=== PATIENT | male | born 1990 | race Caucasian/White ===

== ENCOUNTER 2016-07-21 16:49 | Emergency (ER) | payer OTHER ==
[2016-07-21 17:01] VITALS: RESP 18
[2016-07-21] MEDS ORDERED: LORazepam 2 MG/ML SYRINGE IM STA (17:02)
[2016-07-21 17:16] VITALS: BP 135/60
--- NOTE | 2016-07-21 17:32 | ED ---
General Adult HPI - General Chief complaint: Chest Pain Stated complaint: Chest Pain Time Seen by Provider: 07/21/16 16:53 Source: EMS, RN notes reviewed Mode of arrival: EMS Limitations: no limitations - History of Present Illness Initial comments: 25-year-old male presents to the emergency department chief complaint of chest pain and anxiety. Patient states he is very stressed today now coming court date. Patient states he went outside out of 10 and he felt numb and tingly throughout his whole body his mouth became numb he developed chest pain and he almost felt like he couldn't move. Patient states he now is feeling better. Patient denies any fever chills patient states that he just had this whole body type sensation that has since resolved. Patient states it is not currently having any other symptoms at this time.Patient denies any recent fever, chills, shortness of breath, back pain, abdominal pain, nausea vomiting, numbness or tingling, dysuria or hematuria, constipation or diarrhea, headaches or visual changes, or any other current symptoms. - Related Data Home Medications Medication Instructions Recorded Confirmed No Known Home Medications [No 07/21/16 07/21/16 Known Home Medications] Allergies Allergy/AdvReac Type Severity Reaction Status Date / Time divalproex sodium Allergy Unknown Verified 07/21/16 17:02 [From Depakote] methylphenidate Allergy Unknown Verified 07/21/16 17:02 [From Daytrana] risperidone [From Risperdal] Allergy Unknown Verified 07/21/16 17:02 trazodone Allergy Unknown Verified 07/21/16 17:02 Review of Systems ROS Statement: Those systems with pertinent positive or pertinent negative responses have been documented in the HPI. ROS Other: All systems not noted in ROS Statement are negative. Past Medical History Past Medical History: Diabetes Mellitus, Syncope Additional Past Medical History / Comment(s): Anemia History of Any Multi-Drug Resistant Organisms: None Reported Past Surgical History: Orthopedic Surgery Additional Past Surgical History / Comment(s): wrist surgery Past Psychological History: ADD/ADHD, Anxiety, Bipolar, Schizophrenia Smoking Status: Current every day smoker Past Alcohol Use History: None Reported Past Drug Use History: Marijuana General Exam Limitations: no limitations General appearance: alert, anxious ENT exam: Present: normal exam Neck exam: Present: normal inspection. Absent: tenderness, meningismus, lymphadenopathy Respiratory exam: Present: normal lung sounds bilaterally. Absent: respiratory distress, wheezes, rales, rhonchi, stridor Cardiovascular Exam: Present: regular rate, normal rhythm, normal heart sounds. Absent: systolic murmur, diastolic murmur, rubs, gallop, clicks Neurological exam: Present: alert, oriented X3, CN II-XII intact. Absent: motor sensory deficit Psychiatric exam: Present: normal affect, normal mood Skin exam: Present: warm, dry, intact, normal color. Absent: rash Course Vital Signs 07/21/16 07/21/16 16:59 17:15 Temperature 97.8 F Pulse Rate 75 58 L Respiratory 18 18 Rate Blood Pressure 206/141 135/60 O2 Sat by Pulse 100 100 Oximetry EKG Findings - EKG Comments: EKG Findings:: Sinus bradycardia with sinus arrhythmia 54 bpm, normal axis, no atopy, no S-T depressions or elevations, Medical Decision Making - Medical Decision Making 25-year-old male presents emergency Department chief complaint of what appears to be an anxiety attack. Patient is feeling better with the Ativan. Patient's EKG and chest x-ray reviewed and negative. This time we discussed continued follow up outpatient. We discussed return parameters. We did discuss all the patient's questions. He stated he understood. Patient is discharged home. Disposition Clinical Impression: Anxiety Disposition: HOME SELF-CARE Condition: Stable Instructions: Anxiety (ED) Additional Instructions: Please use medication as discussed. Please follow up with family doctor if symptoms have not improved over the next two days. Please return to the emergency room if your symptoms increase or worsen or for any other concerns. Referrals: Pam Marvin MD [Primary Care Provider] - 1-2 days Time of Disposition: 17:45
--- NOTE | 2016-07-21 17:42 | XR ---
EXAMINATION TYPE: XR chest 2V DATE OF EXAM: 07/21/2016 5:25 PM COMPARISON: 10/10/2011 HISTORY: 25-year-old male with chest pain and cough TECHNIQUE: PA and lateral views FINDINGS: The cardiomediastinal silhouette, aorta, and pulmonary vasculature are within normal limits. There is diffuse interstitial prominence without consolidation or pleural effusion. IMPRESSION: Diffuse interstitial prominence could reflect bronchitis, chronic asthma, or atypical pneumonias.
[2016-07-21 17:55] VITALS: PULSE 66; TEMP 97.4
== END 2016-07-21 17:55 | disposition home or self-care (01) ==
LOC: EC 16:49
DX: F41.9 Anxiety disorder, unspecified (principal); F17.200 Nicotine dependence, unspecified, uncomplicated; Z88.8 Allergy status to other drugs, medicaments and biological substances
CPT/HCPCS: 93005; 71020; 96372; 99285; J2060

== ENCOUNTER 2018-12-19 18:55 | Emergency (ER) | payer OTHER ==
[2018-12-19 19:05] VITALS: RESP 16
[2018-12-19] MEDS ORDERED: CEPHALEXIN 500MG STARTER PACK 4 CAP BTL PO STA (19:56)
--- NOTE | 2018-12-19 20:07 | ED ---
Recheck HPI - General Chief Complaint: Recheck/Abnormal Lab/Rx Stated Complaint: Right Arm Laceration Time Seen by Provider: 12/19/18 19:32 Source: patient Mode of arrival: ambulatory Limitations: no limitations - History of Present Illness Initial Comments: 28-year-old male patient presents to the emergency department today for reevaluation of a laceration to the right wrist. Patient states he injured the right wrist 2 weeks ago. Patient states he did have sutures placed and did have that removed 1 week ago. Patient states that the wound keeps reopening. States that yesterday he did start to drain out of purulent type fluid. Patient states that the area does have pain intermittently. Denies any numbness, tingling, or swelling to the hand or arm. Denies any fever or chills with this. Patient states he was given a prescription of antibiotics at the time of injury however he did not take this medication. States he does have Tylenol Motrin for pain control at home. Patient denies any recent rash, shortness breath, chest pain, abdominal pain, nausea, vomiting, diarrhea, constipation, back pain, numbness, tingling, dizziness, weakness, hematuria, dysuria, urinary urgency, urinary frequency, headache, visual changes, or any other complaints. - Related Data Previous Rx's Medication Instructions Recorded Cephalexin [Keflex] 500 mg PO Q6HR #40 cap 12/19/18 Allergies Allergy/AdvReac Type Severity Reaction Status Date / Time acetaminophen Allergy Rash/Hives Verified 12/19/18 19:00 codeine Allergy Rash/Hives Verified 12/19/18 19:00 divalproex sodium Allergy Unknown Verified 12/19/18 19:00 [From Depakote] methylphenidate Allergy Unknown Verified 12/19/18 19:00 [From Daytrana] risperidone [From Risperdal] Allergy Unknown Verified 12/19/18 19:00 trazodone Allergy Unknown Verified 12/19/18 19:00 Review of Systems ROS Statement: Those systems with pertinent positive or pertinent negative responses have been documented in the HPI. ROS Other: All systems not noted in ROS Statement are negative. Past Medical History Past Medical History: Syncope Additional Past Medical History / Comment(s): Anemia History of Any Multi-Drug Resistant Organisms: None Reported Past Surgical History: Orthopedic Surgery Additional Past Surgical History / Comment(s): wrist surgery Past Psychological History: ADD/ADHD, Anxiety, Bipolar, Schizophrenia Smoking Status: Current every day smoker Past Alcohol Use History: Rare Past Drug Use History: Marijuana General Exam Limitations: no limitations General appearance: alert, in no apparent distress, other (Physical well- developed, well-nourished adult male patient in no acute distress. Vital signs upon presentation are temperature 99.3F, pulse 88, respirations 16, blood pressure 153/89, pulse ox 99% on room air.) Respiratory exam: Present: normal lung sounds bilaterally. Absent: respiratory distress, wheezes, rales, rhonchi, stridor Cardiovascular Exam: Present: regular rate, normal rhythm, normal heart sounds. Absent: systolic murmur, diastolic murmur, rubs, gallop, clicks Extremities exam: Present: full ROM, normal capillary refill, other (Patient has healing laceration to the right wrist. There is one area that is deep but scabbed. There is mild surrounding erythema. Radial pulses 2+ and equal bilaterally. Remainder of skin is pink, warm, and dry.). Absent: normal inspection, tenderness, pedal edema, joint swelling, calf tenderness Neurological exam: Present: alert, oriented X3, CN II-XII intact Psychiatric exam: Present: normal affect, normal mood Skin exam: Present: warm, dry, intact, normal color. Absent: rash Course Vital Signs 12/19/18 12/19/18 19:00 20:34 Temperature 99.3 F 98.7 F Pulse Rate 88 73 Respiratory 16 16 Rate Blood Pressure 153/89 117/59 O2 Sat by Pulse 99 98 Oximetry Medical Decision Making - Medical Decision Making 28-year-old male patient presents to the emergency department today for evaluation of laceration to the right wrist. 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 Physical examination did reveal a deep healing laceration to the right volar wrist. There is mild surrounding erythema. No current drainage. Patient will be started on Keflex, he is urged to complete this prescription and full. Instructed take Tylenol Motrin for pain control. We did discuss him wearing a brace while at work to prevent straining of the lac site, he refuses. He is instructed follow with the primary care physician for recheck in 1-2 days. Return parameters discussed in detail. He verbalizes unders tanding and agrees this plan. Disposition Clinical Impression: Infected laceration Disposition: HOME SELF-CARE Condition: Good Instructions (If sedation given, give patient instructions): Wound Infection (ED), Acute Wound Care (ED) Additional Instructions: Keep area clean and dry. Minimize movement of the wrist until laceration is completely healed. Complete antibiotic prescription in full. Return to the emergency department for any new, worsening, or concerning symptoms. Prescriptions: Cephalexin [Keflex] 500 mg PO Q6HR #40 cap Is patient prescribed a controlled substance at d/c from ED?: No Referrals: None,Stated [Primary Care Provider] - 1-2 days Time of Disposition: 20:07
[2018-12-19 20:36] VITALS: BP 117/59; PULSE 73; TEMP 98.7
== END 2018-12-19 20:34 | disposition home or self-care (01) ==
LOC: EC 18:55
DX: S61.511A Laceration without foreign body of right wrist, initial encounter (principal); L08.9 Local infection of the skin and subcutaneous tissue, unspecified; F17.200 Nicotine dependence, unspecified, uncomplicated; Z88.5 Allergy status to narcotic agent; Z88.6 Allergy status to analgesic agent; Z88.8 Allergy status to other drugs, medicaments and biological substances; W26.9XXA Contact with unspecified sharp object(s), initial encounter
CPT/HCPCS: 99282

== ENCOUNTER 2020-04-30 16:37 | Emergency (ER) | payer OTHER ==
[2020-04-30] MEDS ORDERED: MORPHINE SULFATE 4 MG/ML SYRINGE IV STA (16:53)
[2020-04-30] MEDS ORDERED: METOCLOPRAMIDE 5 MG/ML 2 ML VIAL IVP STA (16:53)
[2020-04-30] MEDS ORDERED: SODIUM CHLORIDE 0.9% 1,000 ML IV ONE (16:53)
[2020-04-30 17:08] LABS: Basophils # (A) 0.1 k/uL (0-0.2); Basophils % (A) 1 %; Eosinophils # (A) 0.3 k/uL (0-0.7); Eosinophils % (A) 3 %; HCT 46.7 % (39.0-53.0); HGB 15.3 gm/dL (13.0-17.5); Lymphocytes # (A) 3.2 k/uL (1.0-4.8); Lymphocytes % (A) 38 %; MCH 28.6 pg (25.0-35.0); MCHC 32.8 g/dL (31.0-37.0); MCV 87.4 fL (80.0-100.0); Mean Platelet Volume 8.6; Monocytes # (A) 0.5 k/uL (0-1.0); Monocytes % (A) 6 %; Neutrophils # (A) 4.3 k/uL (1.3-7.7); Neutrophils % (A) 50 %; Platelet Count 219 k/uL (150-450); RBC 5.35 m/uL (4.30-5.90); RDW 14.7 % (11.5-15.5); WBC 8.5 k/uL (3.8-10.6)
[2020-04-30 17:23] LABS: ALT 21 U/L (4-49); AST 26 U/L (17-59); African American GFR (CKD) >90 (>60 ml/min/1.73 sqM); Albumin 4.9 g/dL (3.5-5.0); Alkaline Phosphatase 67 U/L (38-126); Anion Gap 9 mmol/L; Blood Urea Nitrogen 11 mg/dL (9-20); Calcium 9.9 mg/dL (8.4-10.2); Carbon Dioxide 20 mmol/L (22-30); Chloride 111 mmol/L (98-107); Glucose 122 mg/dL (74-99); Non-African American GFR(CKD) >90 (>60 ml/min/1.73 sqM); Sodium 140 mmol/L (137-145); Total Bilirubin 0.9 mg/dL (0.2-1.3); Total Protein 8.2 g/dL (6.3-8.2)
[2020-04-30 17:28] LABS: Potassium 4.5 mmol/L (3.5-5.1)
[2020-04-30 17:37] LABS: Partial Thromboplastin Time 27.9 sec (22.0-30.0); Prothrombin Time 10.6 sec (9.0-12.0)
--- NOTE | 2020-04-30 17:42 | CT ---
EXAMINATION TYPE: CT brain cspine wo con DATE OF EXAM: 04/30/2020 COMPARISON: 04/28/2020 HISTORY: Pt fall, c/o excruciating pain LT side of head. CT DLP: 1791.6 mGycm Automated exposure control for dose reduction was used. Ventricles have normal size. There is no mass effect nor midline shift. There is no sign of intracran ial hemorrhage. The calvarium is intact. There is no evidence of cerebral edema. There is some straightening of the cervical spine. Disc spaces are normal. Posterior elements are int act. Facet joints appear normal. Prevertebral soft tissues appear normal. IMPRESSION: Normal unenhanced head CT scan. No change. There is some straightening of the cervical spine and slight kyphotic curvature that could relate to spasm and is a change compared to recent exam. No cervical spine fracture. I do not see obvious cervi indira disc herniation.
--- NOTE | 2020-04-30 18:13 | CT ---
EXAMINATION TYPE: CT angio head neck DATE OF EXAM: 04/30/2020 COMPARISON: None HISTORY: Pt fall, c/o excruciating pain LT side of head CT DLP: 826.2 mGycm Automated exposure control for dose reduction was used. CONTRAST: Performed with IV Contrast, patient injected with 65 mL of Isovue 370. Images obtained from the aortic arch to the vertex of the brain with IV contrast and 3-D post process ed images. There is normal branching pattern of the great vessels on the aortic arch. There is bilateral arteria l flow in the subclavian arteries. There is arterial flow in the common internal and external carotid arteries bilaterally. Carotid artery bifurcations appear widely patent. There is arterial flow in michael th vertebral arteries. Left vertebral artery is larger than the right. Basilar artery fills mostly fr om the left side. Right vertebral artery is relatively small. There is arterial flow in the anterior middle and posterior cerebral arteries. There is no evidence o f intracranial aneurysm or neovascularity. There is no mass effect. There is no evidence of hemodynam ic stenosis. There is normal contrast opacification of the venous sinuses. There is 1 cm mucous reten tion cyst in the left maxillary sinus. IMPRESSION: Negative CT angiogram of the neck. Negative CT angiogram of the brain.
--- NOTE | 2020-04-30 18:51 | ED ---
General Adult HPI - General Source: patient, RN notes reviewed, old records reviewed Mode of arrival: ambulatory Limitations: no limitations <León Monson - Last Filed: 04/30/20 19:14> <Tammie Peña - Last Filed: 05/02/20 08:30> - General Chief complaint: Headache Stated complaint: head pain Time Seen by Provider: 04/30/20 16:46 - History of Present Illness Initial comments: 29-year-old male patient to ED for headache. Patient reports that about 3 PM yesterday he developed a left parietal headache. He reports that he was very sharp. He reports that onset was approximately 30 minutes. Patient was that he went to sleep with headache. He reports that he woke up today with no headache, 15 minutes later the headache again returned. He denies any chest pain shortness of breath. No nuchal rigidity or headache. Denies any other complaints. Systemic: Pt denies fatigue, fever/chills, rash. Pt denies weakness, night sweats, weight loss. Neuro: Pt denies visual disturbances, syncope or pre-syncope. HEENT: Pt denies ocular discharge or irritation, otalgia, rhinorrhea, pharyngitis or notable lymphadenopathy. Cardiopulmonary: Pt denies chest pain, SOB, heart palpitations, dyspnea on exertion. Abdominal/GI: Pt denies abdominal pain, n/v/d. : Pt denies dysuria, burning w/ urination, frequency/urgency. Denies new onset urinary or bowel incontinence. MSK: Pt denies myalgia, loss of strength or function in extremities. Neuro: Pt denies new onset weakness, paresthesias. (León Monson) - Related Data Previous Rx's Medication Instructions Recorded Cephalexin [Keflex] 500 mg PO Q6HR #40 cap 12/19/18 Amoxic-Pot Clav 875-125Mg 1 tab PO Q12HR 10 Days #20 tab 05/01/20 [Augmentin 875-125] Allergies Allergy/AdvReac Type Severity Reaction Status Date / Time acetaminophen Allergy Rash/Hives Verified 05/01/20 17:18 codeine Allergy Rash/Hives Verified 05/01/20 17:18 divalproex sodium Allergy Unknown Verified 05/01/20 17:18 [From Depakote] methylphenidate Allergy Unknown Verified 05/01/20 17:18 [From Daytrana] risperidone [From Risperdal] Allergy Unknown Verified 05/01/20 17:18 trazodone Allergy Unknown Verified 05/01/20 17:18 Review of Systems ROS Other: All systems not noted in ROS Statement are negative. <León Monson - Last Filed: 04/30/20 19:14> ROS Other: All systems not noted in ROS Statement are negative. <Tammie Peña Rosalinda - Last Filed: 05/02/20 08:30> ROS Statement: Those systems with pertinent positive or pertinent negative responses have been documented in the HPI. Past Medical History Past Medical History: Syncope Additional Past Medical History / Comment(s): Anemia History of Any Multi-Drug Resistant Organisms: None Reported Past Surgical History: Orthopedic Surgery Additional Past Surgical History / Comment(s): wrist surgery Past Psychological History: ADD/ADHD, Anxiety, Bipolar, Schizophrenia Smoking Status: Current every day smoker Past Alcohol Use History: Rare Past Drug Use History: Marijuana <León Monson - Last Filed: 04/30/20 19:14> General Exam Limitations: no limitations <León Monson - Last Filed: 04/30/20 19:14> - General Exam Comments Initial Comments: Constitutional: NAD, AOX3, Pt has pleasant affect. HEENT: NC/AT, trachea midline, neck supple, no lymphadenopathy. External ears appear normal, without discharge. Mucous membranes moist. Eyes PERRLA, EOM intact. There is no scleral icterus. No pallor noted. Cardiopulmonary: RRR, no murmurs, rubs or gallops, no JVD noted. Lungs CTAB in anterior and posterior berg. No peripheral edema. Abdominal exam: Abdomen soft and non-distended. Abdomen non-tender to palpation in all 4 quadrants. Bowel sounds active in LLQ. No hepatosplenomegaly. No ecchymosis Neuro: CN II-XII intact. No nuchal rigidity. No raccon eyes, no ritter sign, no hemotympanum. No cervical spinal tenderness. MSK: No posterior calf tenderness bilaterally, homans sign negative bilaterally. Posterior tibialis and radial pulse +2 bilaterally. Sensation intact in upper and lower extremities. Full active ROM in upper and lower extremities, 5/5 stregnth. (León Monson) Course Vital Signs 04/30/20 04/30/20 04/30/20 16:39 18:28 19:28 Temperature 97.4 F L 97.6 F Pulse Rate 74 51 L 55 L Respiratory 18 18 16 Rate Blood Pressure 156/82 106/89 125/89 O2 Sat by Pulse 100 98 97 Oximetry Medical Decision Making - Lab Data Result diagrams: 04/30/20 16:59 04/30/20 16:59 - EKG Data -: EKG Interpreted by Me (and Dr. Peña ) <León Monson - Last Filed: 04/30/20 19:14> - Lab Data Result diagrams: 04/30/20 16:59 04/30/20 16:59 <Tammie Peña - Last Filed: 05/02/20 08:30> - Medical Decision Making 29-year-old male patient to ED for headache. Patient reports that about 3 PM yesterday he developed a left parietal headache. He reports that he was very sharp. He reports that onset was approximately 30 minutes. Patient was that he went to sleep with headache. He reports that he woke up today with no headache, 15 minutes later the headache again returned. He denies any chest pain shortness of breath. No nuchal rigidity or headache. Denies any other complaints. Patient vital signs are stable, afebrile. Laboratory investigations are obtained and are nonimpressive. CT brain c spine is obtained and are negative for acute pathology. CTA was negative. EKG is nonischemic. Patient headache has resolved. LP was reccomended and declined. Patient will be discharged with outpatient follow up and return precautions. Case discussed in depth with Dr. Peña. (León Monson) I was available for consultation in the emergency department. The history and physical exam were done by the midlevel provider. I was consulted for this patients care. I reviewed the case with the midlevel provider and based on their presentation of the patient, I agree with the assessment, medical decision making and plan of care as documented. Chart was dictated using [employer] dictation software. Attempts were made to correct any dictation errors however some typographical errors may persist. Patient seen and treated during Covid-19 pandemic. (Tammie Peña) - Lab Data Lab Results 11/15/20 11/15/20 11/15/20 Range/Units 16:59 16:59 16:59 WBC 8.5 (3.8-10.6) k/uL RBC 5.35 (4.30-5.90) m/uL Hgb 15.3 (13.0-17.5) gm/dL Hct 46.7 (39.0-53.0) % MCV 87.4 (80.0-100.0) fL MCH 28.6 (25.0-35.0) pg MCHC 32.8 (31.0-37.0) g/dL RDW 14.7 (11.5-15.5) % Plt Count 219 (150-450) k/uL MPV 8.6 Neutrophils % 50 % Lymphocytes % 38 % Monocytes % 6 % Eosinophils % 3 % Basophils % 1 % Neutrophils # 4.3 (1.3-7.7) k/uL Lymphocytes # 3.2 (1.0-4.8) k/uL Monocytes # 0.5 (0-1.0) k/uL Eosinophils # 0.3 (0-0.7) k/uL Basophils # 0.1 (0-0.2) k/uL PT 10.6 (9.0-12.0) sec INR 1.0 (<1.2) APTT 27.9 (22.0-30.0) sec Sodium 140 (137-145) mmol/L Potassium 4.5 (3.5-5.1) mmol/L Chloride 111 H (98-107) mmol/L Carbon Dioxide 20 L (22-30) mmol/L Anion Gap 9 mmol/L BUN 11 (9-20) mg/dL Creatinine 0.90 (0.66-1.25) mg/dL Est GFR (CKD-EPI)AfAm >90 (>60 ml/min/1.73 sqM) Est GFR (CKD-EPI)NonAf >90 (>60 ml/min/1.73 sqM) Glucose 122 H (74-99) mg/dL Calcium 9.9 (8.4-10.2) mg/dL Total Bilirubin 0.9 (0.2-1.3) mg/dL AST 26 (17-59) U/L ALT 21 (4-49) U/L Alkaline Phosphatase 67 (38-126) U/L Troponin I (0.000-0.034) ng/mL Total Protein 8.2 (6.3-8.2) g/dL Albumin 4.9 (3.5-5.0) g/dL 04/30/20 Range/Units 16:59 WBC (3.8-10.6) k/uL RBC (4.30-5.90) m/uL Hgb (13.0-17.5) gm/dL Hct (39.0-53.0) % MCV (80.0-100.0) fL MCH (25.0-35.0) pg MCHC (31.0-37.0) g/dL RDW (11.5-15.5) % Plt Count (150-450) k/uL MPV Neutrophils % % Lymphocytes % % Monocytes % % Eosinophils % % Basophils % % Neutrophils # (1.3-7.7) k/uL Lymphocytes # (1.0-4.8) k/uL Monocytes # (0-1.0) k/uL Eosinophils # (0-0.7) k/uL Basophils # (0-0.2) k/uL PT (9.0-12.0) sec INR (<1.2) APTT (22.0-30.0) sec Sodium (137-145) mmol/L Potassium (3.5-5.1) mmol/L Chloride (98-107) mmol/L Carbon Dioxide (22-30) mmol/L Anion Gap mmol/L BUN (9-20) mg/dL Creatinine (0.66-1.25) mg/dL Est GFR (CKD-EPI)AfAm (>60 ml/min/1.73 sqM) Est GFR (CKD-EPI)NonAf (>60 ml/min/1.73 sqM) Glucose (74-99) mg/dL Calcium (8.4-10.2) mg/dL Total Bilirubin (0.2-1.3) mg/dL AST (17-59) U/L ALT (4-49) U/L Alkaline Phosphatase (38-126) U/L Troponin I <0.012 (0.000-0.034) ng/mL Total Protein (6.3-8.2) g/dL Albumin (3.5-5.0) g/dL - EKG Data EKG Comments: Ventricular rate 56, MT interval 168, QRS 108, QT/QTc 416/401. Sinus bradycardia. Possible inferior infarct age undetermined. No concern for acute ischemia or arrhythmia at this time. No significant change from prior. (León Monson) Disposition Is patient prescribed a controlled substance at d/c from ED?: No <León Monson - Last Filed: 04/30/20 19:14> <Tammie Peña - Last Filed: 05/02/20 08:30> Clinical Impression: Acute headache Disposition: HOME SELF-CARE Instructions (If sedation given, give patient instructions): Acute Headache (ED) Additional Instructions: Follow up with PCP tomorrow. Return to ED with any worsening symptoms. Referrals: None,Stated [Primary Care Provider] - 1-2 days Christiano Barnett [STAFF PHYSICIAN] - 1-2 days Pam Marvin MD [REFERRING] - 1-2 days
[2020-04-30 19:31] VITALS: BP 125/89; PULSE 55; RESP 16; TEMP 97.6
== END 2020-04-30 19:28 | disposition home or self-care (01) ==
LOC: EC 16:37
DX: R51.9 Headache, unspecified (principal); F17.200 Nicotine dependence, unspecified, uncomplicated; Z88.6 Allergy status to analgesic agent; Z88.5 Allergy status to narcotic agent; Z88.8 Allergy status to other drugs, medicaments and biological substances
CPT/HCPCS: 36415; 93005; 80053; 84484; 85025; 85610; 85730; 72125; 70496; 70450; 70498; 99285; 96374; 96375; 96361; J2270; J2765; Q9967

== ENCOUNTER 2020-05-01 16:55 | Emergency (ER) | payer OTHER ==
[2020-05-01 17:17] VITALS: RESP 18
[2020-05-01] MEDS ORDERED: ONDANSETRON 4 MG/2 ML VIAL IVP STA (18:25)
[2020-05-01] MEDS ORDERED: HYDROmorphone 0.5 MG/0.5 ML SYRINGE IVP STA (18:25)
[2020-05-01] MEDS ORDERED: KETOROLAC 15 MG/ML 1 ML VIAL IVP STA (18:25)
[2020-05-01] MEDS ORDERED: SODIUM CHLORIDE 0.9% 500 ML 500 ML IV ONE (18:25)
[2020-05-01] MEDS ORDERED: MAGNESIUM SULFATE-D5W PMX 1 GM in DEXTROSE/WATER 1 100ML.BAG IVPB ONE (18:25)
[2020-05-01 18:49] LABS: Basophils # (A) 0.1 k/uL (0-0.2); Basophils % (A) 1 %; Eosinophils # (A) 0.3 k/uL (0-0.7); Eosinophils % (A) 3 %; HCT 42.5 % (39.0-53.0); HGB 14.1 gm/dL (13.0-17.5); Lymphocytes # (A) 2.6 k/uL (1.0-4.8); Lymphocytes % (A) 28 %; MCHC 33.2 g/dL (31.0-37.0); MCV 87.4 fL (80.0-100.0); Mean Platelet Volume 8.5; Monocytes # (A) 0.6 k/uL (0-1.0); Monocytes % (A) 7 %; Neutrophils # (A) 5.4 k/uL (1.3-7.7); Neutrophils % (A) 59 %; Platelet Count 202 k/uL (150-450); RBC 4.86 m/uL (4.30-5.90); RDW 14.3 % (11.5-15.5); WBC 9.2 k/uL (3.8-10.6)
[2020-05-01 19:03] LABS: ALT 20 U/L (4-49); AST 21 U/L (17-59); African American GFR (CKD) >90 (>60 ml/min/1.73 sqM); Albumin 4.7 g/dL (3.5-5.0); Alkaline Phosphatase 62 U/L (38-126); Anion Gap 7 mmol/L; Blood Urea Nitrogen 12 mg/dL (9-20); Carbon Dioxide 23 mmol/L (22-30); Chloride 109 mmol/L (98-107); Glucose 99 mg/dL (74-99); Magnesium 1.9 mg/dL (1.6-2.3); Non-African American GFR(CKD) >90 (>60 ml/min/1.73 sqM); Potassium 4.2 mmol/L (3.5-5.1); Sodium 139 mmol/L (137-145); Total Bilirubin 0.6 mg/dL (0.2-1.3); Total Protein 7.9 g/dL (6.3-8.2)
--- NOTE | 2020-05-01 19:03 | ED ---
General Adult HPI - General Chief complaint: Headache Stated complaint: Headache Time Seen by Provider: 05/01/20 18:13 Source: patient, RN notes reviewed, old records reviewed Mode of arrival: ambulatory Limitations: no limitations - History of Present Illness Initial comments: 29-year-old male presents for evaluation of left-sided headache. Headache is been ongoing for the past several days. He was seen in the emergency department yesterday with similar symptoms, had been given some tonight treatment as well as receive the CT and CT angiography of the brain. He was discharged in stable condition feeling much better. He states throughout the day today he has been taking Motrin with minimal relief. He does not have a previous headache histor y. He does have some poor dentition and think this may be related to a tooth problem. Additionally feels some fullness in the left ear adjacent to his headache complaint. He has some mild nausea without significant vomiting. No fever. - Related Data Previous Rx's Medication Instructions Recorded Cephalexin [Keflex] 500 mg PO Q6HR #40 cap 12/19/18 Amoxic-Pot Clav 875-125Mg 1 tab PO Q12HR 10 Days #20 tab 05/01/20 [Augmentin 875-125] Allergies Allergy/AdvReac Type Severity Reaction Status Date / Time acetaminophen Allergy Rash/Hives Verified 05/01/20 17:18 codeine Allergy Rash/Hives Verified 05/01/20 17:18 divalproex sodium Allergy Unknown Verified 05/01/20 17:18 [From Depakote] methylphenidate Allergy Unknown Verified 05/01/20 17:18 [From Daytrana] risperidone [From Risperdal] Allergy Unknown Verified 05/01/20 17:18 trazodone Allergy Unknown Verified 05/01/20 17:18 Review of Systems ROS Statement: Those systems with pertinent positive or pertinent negative responses have been documented in the HPI. ROS Other: All systems not noted in ROS Statement are negative. Past Medical History Past Medical History: Syncope Additional Past Medical History / Comment(s): Anemia History of Any Multi-Drug Resistant Organisms: None Reported Past Surgical History: Orthopedic Surgery Additional Past Surgical History / Comment(s): wrist surgery Past Psychological History: ADD/ADHD, Anxiety, Bipolar, Schizophrenia Smoking Status: Current every day smoker Past Alcohol Use History: Rare Past Drug Use History: Marijuana General Exam Limitations: no limitations General appearance: alert, in no apparent distress Head exam: Present: atraumatic, normocephalic Eye exam: Present: normal appearance ENT exam: Present: mucous membranes dry, other (left tympanic membrane is erythematous, nonbulging. poor Dentition, fractured left upper molar) Neck exam: Present: normal inspection. Absent: tenderness Respiratory exam: Present: normal lung sounds bilaterally. Absent: respiratory distress, wheezes Cardiovascular Exam: Present: regular rate, normal rhythm GI/Abdominal exam: Present: soft. Absent: distended, tenderness, guarding Extremities exam: Present: normal inspection, normal capillary refill. Absent: pedal edema, calf tenderness Neurological exam: Present: alert, oriented X3, CN II-XII intact. Absent: motor sensory deficit Skin exam: Present: warm, dry, intact. Absent: cyanosis, diaphoretic Course Vital Signs 05/01/20 17:13 Temperature 99.0 F Pulse Rate 85 Respiratory 18 Rate Blood Pressure 129/78 O2 Sat by Pulse 98 Oximetry - Reevaluation(s) Reevaluation #1: 05/01/20 19:27 patient reevaluated, headache resolved. Medical Decision Making - Medical Decision Making 29-year-old male presenting for reevaluation of headache. Patient well- appearing with stable vitals, nonfocal neurologic exam. Head CT was performed yesterday which was negative for intracranial hemorrhage or mass effect, CT angiography negative for aneurysm or any acute findings. Patient has very poor dentition and fractured tooth left upper molar. This might be the cause of his left sided headache. He is started on Augmentin. He will follow-up with his dentist and his primary care physician. - Lab Data Result diagrams: 05/01/20 18:42 05/01/20 18:42 Lab Results 05/01/20 05/01/20 Range/Units 18:42 18:42 WBC 9.2 (3.8-10.6) k/uL RBC 4.86 (4.30-5.90) m/uL Hgb 14.1 (13.0-17.5) gm/dL Hct 42.5 (39.0-53.0) % MCV 87.4 (80.0-100.0) fL MCH 29.0 (25.0-35.0) pg MCHC 33.2 (31.0-37.0) g/dL RDW 14.3 (11.5-15.5) % Plt Count 202 (150-450) k/uL MPV 8.5 Neutrophils % 59 % Lymphocytes % 28 % Monocytes % 7 % Eosinophils % 3 % Basophils % 1 % Neutrophils # 5.4 (1.3-7.7) k/uL Lymphocytes # 2.6 (1.0-4.8) k/uL Monocytes # 0.6 (0-1.0) k/uL Eosinophils # 0.3 (0-0.7) k/uL Basophils # 0.1 (0-0.2) k/uL Sodium 139 (137-145) mmol/L Potassium 4.2 (3.5-5.1) mmol/L Chloride 109 H (98-107) mmol/L Carbon Dioxide 23 (22-30) mmol/L Anion Gap 7 mmol/L BUN 12 (9-20) mg/dL Creatinine 1.02 (0.66-1.25) mg/dL Est GFR (CKD-EPI)AfAm >90 (>60 ml/min/1.73 sqM) Est GFR (CKD-EPI)NonAf >90 (>60 ml/min/1.73 sqM) Glucose 99 (74-99) mg/dL Calcium 10.0 (8.4-10.2) mg/dL Magnesium 1.9 (1.6-2.3) mg/dL Total Bilirubin 0.6 (0.2-1.3) mg/dL AST 21 (17-59) U/L ALT 20 (4-49) U/L Alkaline Phosphatase 62 (38-126) U/L Total Protein 7.9 (6.3-8.2) g/dL Albumin 4.7 (3.5-5.0) g/dL Disposition Clinical Impression: Acute headache, Fractured tooth Disposition: HOME SELF-CARE Condition: Good Instructions (If sedation given, give patient instructions): Acute Headache (ED) Additional Instructions: please follow up with her primary care physician regarding her headache. Please follow-up with your dentist regarding your left upper molar. Prescriptions: Amoxic-Pot Clav 875-125Mg [Augmentin 875-125] 1 tab PO Q12HR 10 Days #20 tab Is patient prescribed a controlled substance at d/c from ED?: No Referrals: None,Stated [Primary Care Provider] - 1-2 days Bazo,Charbal B, MD [REFERRING] - 1-2 days Time of Disposition: 19:27
[2020-05-01 20:39] VITALS: BP 124/82; PULSE 70; TEMP 98.7
== END 2020-05-01 20:39 | disposition home or self-care (01) ==
LOC: EC 16:55
DX: R51.9 Headache, unspecified (principal); S02.5XXA Fracture of tooth (traumatic), initial encounter for closed fracture; F17.200 Nicotine dependence, unspecified, uncomplicated; Z88.5 Allergy status to narcotic agent; Z88.6 Allergy status to analgesic agent; Z88.8 Allergy status to other drugs, medicaments and biological substances; X58.XXXA Exposure to other specified factors, initial encounter
CPT/HCPCS: 99284; 96365; 36415; 80053; 83735; 85025; 96366; 96375 ×3; J2405; J3475; J1885; J1170

== ENCOUNTER 2020-10-29 05:03 | Emergency (ER) | payer OTHER ==
[2020-10-29 05:10] VITALS: TEMP 97.8
[2020-10-29] MEDS ORDERED: MORPHINE SULFATE 4 MG/ML SYRINGE IV STA (05:18)
[2020-10-29] MEDS ORDERED: SODIUM CHLORIDE 0.9% 1,000 ML IV STA (05:18)
[2020-10-29] MEDS ORDERED: ONDANSETRON 4 MG/2 ML VIAL IVP STA (05:28)
[2020-10-29 05:41] LABS: Basophils # (A) 0.1 k/uL (0-0.2); Basophils % (A) 1 %; Eosinophils # (A) 0.4 k/uL (0-0.7); Eosinophils % (A) 3 %; HCT 41.2 % (39.0-53.0); HGB 14.3 gm/dL (13.0-17.5); Lymphocytes # (A) 5.6 k/uL (1.0-4.8); Lymphocytes % (A) 41 %; MCH 29.6 pg (25.0-35.0); MCHC 34.6 g/dL (31.0-37.0); MCV 85.3 fL (80.0-100.0); Mean Platelet Volume 8.6; Monocytes % (A) 7 %; Neutrophils # (A) 6.1 k/uL (1.3-7.7); Neutrophils % (A) 45 %; Platelet Count 281 k/uL (150-450); RBC 4.83 m/uL (4.30-5.90); RDW 14.1 % (11.5-15.5); WBC 13.6 k/uL (3.8-10.6)
[2020-10-29 06:00] LABS: ALT 26 U/L (4-49); AST 31 U/L (17-59); African American GFR (CKD) >90 (>60 ml/min/1.73 sqM); Albumin 4.7 g/dL (3.5-5.0); Alkaline Phosphatase 88 U/L (38-126); Amylase 45 U/L (30-110); Anion Gap 13 mmol/L; Blood Urea Nitrogen 14 mg/dL (9-20); Calcium 10.1 mg/dL (8.4-10.2); Carbon Dioxide 19 mmol/L (22-30); Chloride 110 mmol/L (98-107); Glucose 125 mg/dL (74-99); Lipase 33 U/L (23-300); Magnesium 1.9 mg/dL (1.6-2.3); Non-African American GFR(CKD) >90 (>60 ml/min/1.73 sqM); Potassium 3.3 mmol/L (3.5-5.1); Sodium 142 mmol/L (137-145); Total Bilirubin 0.7 mg/dL (0.2-1.3); Total Protein 7.8 g/dL (6.3-8.2)
[2020-10-29 06:05] LABS: D-Dimer <0.17 mg/L FEU (<0.60); INR 0.9 (<1.2); Prothrombin Time 10.2 sec (9.0-12.0)
[2020-10-29 06:42] LABS: Anisocytosis (M) Present
[2020-10-29 06:43] LABS: Large Platelets Present; Polychromasia Present
--- NOTE | 2020-10-29 07:08 | XR ---
EXAM: XR Chest, 1 View CLINICAL HISTORY: ITS.REASON XR Reason: chest pain TECHNIQUE: Frontal view of the chest. COMPARISON: 07/21/2016 FINDINGS: Lungs: Diminished lung volumes with subsegmental opacities at the lung bases, new from the previous examination. The pulmonary vasculature appears slightly crowded but demonstrates no evidence for florid CHF. Pleural space: Unremarkable. No pneumothorax. No large pleural effusion. Heart: Unremarkable. No cardiomegaly. Mediastinum: No significant abnormality identified. The trachea is midline. Bones/joints: Unremarkable. IMPRESSION: Diminished lung volumes with subsegmental opacities at the lung bases, new from the previous examination. Favor subsegmental atelectasis. Subtle infection is considered less likely. No pleural effusion or pneumothorax.
--- NOTE | 2020-10-29 07:27 | ED ---
Chest Pain HPI - General Chief Complaint: Chest Pain Stated Complaint: Chest Pain Time Seen by Provider: 10/29/20 05:11 Source: EMS Mode of arrival: ambulatory - History of Present Illness Complaint: chest pain -: hour(s) Onset: during rest Pain Location: substernal Pain Radiation: back Severity: moderate Quality: heaviness (Pressure), other Consistency: constant Improves With: nothing Worsens With: nothing Anginal Symptoms: nausea Treatments Prior to Arrival: none - Related Data Previous Rx's Medication Instructions Recorded cephALEXin [Keflex] 500 mg PO Q6HR #40 cap 12/19/18 Amoxic-Pot Clav 875-125Mg 1 tab PO Q12HR 10 Days #20 tab 05/01/20 [Augmentin 875-125] Allergies Allergy/AdvReac Type Severity Reaction Status Date / Time acetaminophen Allergy Rash/Hives Verified 10/29/20 05:11 codeine Allergy Rash/Hives Verified 10/29/20 05:11 divalproex sodium Allergy Unknown Verified 10/29/20 05:11 [From Depakote] methylphenidate Allergy Unknown Verified 10/29/20 05:11 [From Daytrana] risperidone [From Risperdal] Allergy Unknown Verified 10/29/20 05:11 trazodone Allergy Unknown Verified 10/29/20 05:11 Review of Systems ROS Statement: Those systems with pertinent positive or pertinent negative responses have been documented in the HPI. ROS Other: All systems not noted in ROS Statement are negative. Constitutional: Denies: fever, chills Respiratory: Denies: cough, dyspnea Cardiovascular: Reports: chest pain. Denies: palpitations, orthopnea, edema, syncope Gastrointestinal: Reports: abdominal pain. Denies: nausea, vomiting, diarrhea, constipation, melena, hematochezia Genitourinary: Denies: dysuria, hematuria Musculoskeletal: Denies: back pain Skin: Denies: rash Neurological: Denies: headache, weakness, numbness EKG Findings - EKG Results: EKG: interpreted by MOOK, sinus rhythm (With sinus arrhythmia, rate 66 bpm), normal axis, normal QRS (Nonspecific intraventricular conduction delay), normal ST/T Past Medical History Past Medical History: Syncope Additional Past Medical History / Comment(s): Anemia History of Any Multi-Drug Resistant Organisms: None Reported Past Surgical History: Orthopedic Surgery Additional Past Surgical History / Comment(s): wrist surgery Past Psychological History: ADD/ADHD, Anxiety, Bipolar, Schizophrenia Smoking Status: Current every day smoker Past Alcohol Use History: Rare Past Drug Use History: Marijuana General Exam General appearance: alert, in no apparent distress Head exam: Present: atraumatic, normocephalic Eye exam: Present: normal appearance. Absent: scleral icterus, conjunctival injection ENT exam: Present: mucous membranes dry Neck exam: Present: normal inspection Respiratory exam: Present: normal lung sounds bilaterally. Absent: respiratory distress, wheezes, rales, rhonchi, stridor, accessory muscle use, decreased breath sounds Cardiovascular Exam: Present: regular rate, normal rhythm, normal heart sounds. Absent: systolic murmur, diastolic murmur, rubs, gallop GI/Abdominal exam: Present: soft, tenderness. Absent: distended, guarding, rebound, rigid, mass, pulsatile mass, hernia Extremities exam: Present: normal inspection, normal capillary refill. Absent: pedal edema, calf tenderness Back exam: Present: normal inspection. Absent: CVA tenderness (R), CVA tenderness (L) Neurological exam: Present: alert Skin exam: Present: warm, dry, intact, normal color. Absent: rash Course Vital Signs 10/29/20 10/29/20 10/29/20 05:06 05:11 05:15 Temperature 97.8 F Pulse Rate 73 82 Pulse Rate [ 84 Addictions Counselor ] Respiratory 18 18 Rate Blood Pressure 140/75 129/62 O2 Sat by Pulse 100 100 Oximetry 10/29/20 06:56 Temperature Pulse Rate 65 Pulse Rate [ Addictions Counselor ] Respiratory 16 Rate Blood Pressure 100/62 O2 Sat by Pulse 95 Oximetry Disposition Clinical Impression: Biliary colic Disposition: HOME SELF-CARE Condition: Good Instructions (If sedation given, give patient instructions): Biliary Colic (ED) Is patient prescribed a controlled substance at d/c from ED?: No Referrals: None,Stated [Primary Care Provider] - 1-2 days Gianluca John MD [Medical Doctor] - 1-2 days
--- NOTE | 2020-10-29 07:46 | US ---
EXAMINATION TYPE: US abdomen limited DATE OF EXAM: 10/29/2020 COMPARISON: NONE CLINICAL HISTORY: attention RUQ. Chest pain EXAM MEASUREMENTS: Liver Length: 18.4 cm Gallbladder Wall: 0.2 cm CBD: 0.4 cm Right Kidney: 11.6 x 4.5 x 5.1 cm Pancreas: wnl, tail obscured by overlying bowel gas Liver: Enlarged, heterogeneous Gallbladder: wnl Evidence for sonographic Villatoro's sign: No CBD: wnl Right Kidney: wnl IMPRESSION: 1. Hepatomegaly correlate for hepatic steatosis or hepatitis.
[2020-10-29 08:01] VITALS: BP 109/76; PULSE 71; RESP 18
== END 2020-10-29 08:05 | disposition home or self-care (01) ==
LOC: EC 05:03
DX: K80.50 Calculus of bile duct without cholangitis or cholecystitis without obstruction (principal); R07.2 Precordial pain; F31.9 Bipolar disorder, unspecified; F20.9 Schizophrenia, unspecified; F41.9 Anxiety disorder, unspecified; F90.9 Attention-deficit hyperactivity disorder, unspecified type; F17.200 Nicotine dependence, unspecified, uncomplicated; F12.90 Cannabis use, unspecified, uncomplicated
CPT/HCPCS: 36415; 93005; 85379; 80053; 82150; 83690; 83735; 84484; 85025; 85610; 85730; 71045; 76705; 99285; 96374; 96375; 96361 ×3; J2270; J2405

== ENCOUNTER → 2020-11-24 | Outpatient (CLI) | payer OTHER ==
--- NOTE | 2020-11-27 03:58 | NM ---
EXAMINATION TYPE: NM hepatobiliary w EF DATE OF EXAM: 11/24/2020 COMPARISON: Correlation ultrasound 10/29/2020 HISTORY: 30-year-old male K82.8, biliary dyskinesia. TECHNIQUE: After the intravenous administration of 5.2 mCi Tc 99m Mebrofenin hepatobiliary scintigrap hy is performed. Immediate images post injection. FINDINGS: There is satisfactory initial accumulation of tracer by the liver. The gallbladder is visualized wit hin 2 minutes. The small bowel activity is noted after 60 minutes. At one hour 8 ounces of oral ensu re plus is given to mimic CCK and gallbladder ejection fraction is calculated at 46 %, in the normal range. IMPRESSION: No scintigraphic evidence for acute/chronic cholecystitis or biliary dyskinesia.
== END | disposition home or self-care (01) ==
LOC: RADNMMAIN 13:07
PROVIDERS: ATTEND Surgery
DX: Z03.89 Encounter for observation for other suspected diseases and conditions ruled out (principal)
CPT/HCPCS: 78226; A9537

== ENCOUNTER 2020-12-14 07:52 | Day surgery (SDC) | payer OTHER ==
[2020-12-12 15:07] VITALS: BMI 29.3
[~2020-12-14 07:52] MED LIST: LACTATED RINGERS 1,000 ML IV SCH; LIDOCAINE 1% (10MG/ML) FOR IV START INTRADERMA PRN
[2020-12-14 08:39] VITALS: RESP 16; TEMP 96.9
[2020-12-14] MEDS ORDERED: fentaNYL (PF) 50 MCG/ML 2 ML AMP ONE (09:31)
[2020-12-14] MEDS ORDERED: PROPOFOL 10 MG/ML 20 ML VIAL IV ONE (09:31)
[2020-12-14] MEDS ORDERED: MIDAZOLAM 2 MG/2 ML VIAL ONE (09:31)
[2020-12-14] MEDS ORDERED: LIDOCAINE 1% INJ 10MG/ML (20 ML MDV) ONE (09:31)
--- NOTE | 2020-12-14 09:36 | P.GSHP ---
History of Present Illness H&P Date: 12/14/20 Chief Complaint: Epigastric pain Is a 30-year-old male who presents today for EGD. He's had complaints of epigastric pain. Past Medical History Past Medical History: Asthma, Chest Pain / Angina, GERD/Reflux, Hypertension, Skin Disorder, Syncope Additional Past Medical History / Comment(s): Anemia, hx fx rib area, daily diarrhea, IBS, daily vomiting, "I told liver slowly shutting down", psoriasis, "borderline diabetic"-watches diet, limps due to bad hip History of Any Multi-Drug Resistant Organisms: None Reported Past Surgical History: Orthopedic Surgery Additional Past Surgical History / Comment(s): ORIF rt wrist/ later hardware removed Past Anesthesia/Blood Transfusion Reactions: Previous Problems w/ Anesthesia Additional Past Anesthesia/Blood Transfusion Reaction / Comment(s): woke up during middle of surgery Smoking Status: Current every day smoker - Past Family History Mother Family Medical History: No Reported History Medications and Allergies Home Medications Medication Instructions Recorded Confirmed Type No Known Home Medications 12/12/20 12/12/20 History Allergies Allergy/AdvReac Type Severity Reaction Status Date / Time acetaminophen Allergy Rash/Hives Verified 12/12/20 14:58 codeine Allergy Rash/Hives Verified 12/12/20 14:58 divalproex sodium Allergy Unknown Verified 12/12/20 14:58 [From Depakote] methylphenidate Allergy Unknown Verified 12/12/20 14:58 [From Daytrana] risperidone [From Risperdal] Allergy Unknown Verified 12/12/20 14:58 trazodone Allergy Unknown Verified 12/12/20 14:58 Surgical - Exam Vital Signs Temp Pulse Resp BP Pulse Ox 96.9 F L 72 16 121/61 99 12/14/20 08:35 12/14/20 08:35 12/14/20 08:35 12/14/20 08:35 12/14/20 08:35 - General well developed, well nourished, no distress - Eyes PERRL - ENT normal pinna - Neck no masses - Respiratory normal expansion - Cardiovascular Rhythm: regular - Abdomen Abdomen: soft, non tender Assessment and Plan Assessment: Epigastric pain. We'll perform EGD.
--- NOTE | 2020-12-14 09:45 | P.OP ---
Date of Procedure: 12/14/20 Preoperative Diagnosis: Epigastric abdominal pain Postoperative Diagnosis: Antral gastritis Procedure(s) Performed: EGD Anesthesia: MAC Surgeon: Redd Mcfadden Pathology: other (Antrum) Condition: stable Disposition: PACU Description of Procedure: The patient's placed on the endoscopy table in the lateral position. He received IV sedation. The gastroscope was oropharynx passed in the esophagus and into the stomach. Scope was then placed through the pylorus. The first and second portion of the duodenum. Normal. Scope was then brought back the antrum there is mild information. A biopsies performed. Scope was unretroflexed and remainder the stomach appeared normal. The GE junction was at 40 cm. The distal esophagus appeared normal. The proximal esophagus appeared normal. Scope withdrawn for patient.
[2020-12-14 10:11] VITALS: BP 112/68; PULSE 62
[2020-12-14] MEDS ORDERED: ONDANSETRON 4 MG/2 ML VIAL ONE (11:05)
[2020-12-14] MEDS ORDERED: ONDANSETRON 4 MG/2 ML VIAL IVP ONE (11:08)
== END 2020-12-14 11:31 | disposition home or self-care (01) ==
LOC: ORWHC2ENDO 07:52
PROVIDERS: ATTEND Surgery
DX: K29.50 Unspecified chronic gastritis without bleeding (principal); J45.909 Unspecified asthma, uncomplicated; K21.9 Gastro-esophageal reflux disease without esophagitis; I10 Essential (primary) hypertension; D64.9 Anemia, unspecified; R73.03 Prediabetes; Z98.890 Other specified postprocedural states; F17.200 Nicotine dependence, unspecified, uncomplicated; K58.0 Irritable bowel syndrome with diarrhea; Z88.6 Allergy status to analgesic agent; Z88.5 Allergy status to narcotic agent; Z88.8 Allergy status to other drugs, medicaments and biological substances
CPT/HCPCS: 43239; 88305; 88342; J2250; J2405; J2001; J3010; J2704; 45380

== ENCOUNTER 2021-02-15 07:52 | Day surgery (SDC) | payer OTHER ==
[2021-02-12 15:15] VITALS: BMI 31.3
[~2021-02-15 07:52] MED LIST changes: +MIDAZOLAM 2 MG/2 ML VIAL IV PRN
[2021-02-15 08:31] VITALS: RESP 16; TEMP 97.8
[2021-02-15] MEDS ORDERED: ONDANSETRON 4 MG/2 ML VIAL ONE (09:07)
[2021-02-15] MEDS ORDERED: LIDOCAINE 1% INJ 10MG/ML (20 ML MDV) ONE (09:07)
[2021-02-15] MEDS ORDERED: PROPOFOL 10 MG/ML 20 ML VIAL IV ONE (09:07)
--- NOTE | 2021-02-15 09:11 | P.GSHP ---
History of Present Illness H&P Date: 02/15/21 Chief Complaint: GERD This is a 30-year-old male been safer EGD. He's had issues with GERD. Past Medical History Past Medical History: Asthma, Chest Pain / Angina, GERD/Reflux, Hypertension, Skin Disorder, Syncope Additional Past Medical History / Comment(s): Anemia, hx fx rib area, daily diarrhea, IBS, daily vomiting, "I was told liver slowly shutting down", Psoriasis, "borderline diabetic"-watches diet, limps due to bad hip. "Treated for Parasite after last EGD, symptoms only got worse." History of Any Multi-Drug Resistant Organisms: None Reported Past Surgical History: Orthopedic Surgery Additional Past Surgical History / Comment(s): ORIF right wrist/hardware later removed, EGD. Past Anesthesia/Blood Transfusion Reactions: Previous Problems w/ Anesthesia Additional Past Anesthesia/Blood Transfusion Reaction / Comment(s): Woke up during middle of surgery. Past Psychological History: ADD/ADHD, Anxiety, Bipolar, Depression, Schizophrenia Smoking Status: Current every day smoker Past Alcohol Use History: None Reported Additional Past Alcohol Use History / Comment(s): Smokes < 1 PPD, has smoked since age 12. Past Drug Use History: Marijuana Additional Drug Use History / Comment(s): Marijuana use daily. Aware no use 24 hrs prior to procedure. - Past Family History Mother Family Medical History: No Reported History Medications and Allergies Home Medications Medication Instructions Recorded Confirmed Type No Known Home Medications 12/12/20 02/15/21 History Allergies Allergy/AdvReac Type Severity Reaction Status Date / Time acetaminophen Allergy Rash/Hives Verified 02/15/21 08:29 codeine Allergy Rash/Hives Verified 02/15/21 08:29 divalproex sodium Allergy Unknown Verified 02/15/21 08:29 [From Depakote] methylphenidate Allergy Unknown Verified 02/15/21 08:29 [From Daytrana] risperidone [From Risperdal] Allergy Unknown Verified 02/15/21 08:29 trazodone Allergy Unknown Verified 02/15/21 08:29 Surgical - Exam Vital Signs Temp Pulse Resp BP Pulse Ox 97.8 F 68 16 112/67 96 02/15/21 08:29 02/15/21 08:29 02/15/21 08:29 02/15/21 08:29 02/15/21 08:29 - General well developed, well nourished, no distress - Eyes PERRL - ENT normal pinna - Neck no masses - Respiratory normal expansion - Cardiovascular Rhythm: regular Assessment and Plan Assessment: GERD. We'll perform EGD
--- NOTE | 2021-02-15 09:21 | P.OP ---
Date of Procedure: 02/15/21 Preoperative Diagnosis: GERD Postoperative Diagnosis: Antral gastritis Retained food in gastric Procedure(s) Performed: EGD Anesthesia: MAC Surgeon: Redd Mcfadden Pathology: other (Antral) Condition: stable Disposition: PACU Description of Procedure: Patient's placed on the endoscopy table in the lateral position. He received IV sedation. The gastroscope oropharynx passed in the esophagus into the stomach. Scope then placed through the pylorus. The first and second portion of the duodenum appeared normal. Scope was then brought back the antrum is mild inflamed. A biopsy was performed There is a large liquid stool in the stomach which limited the view of the mucosa. There is no significant hiatal hernia. The GE junction was at 40 cm the distal esophagus appeared normal. Proximal esophagus appeared normal. Scope was withdrawn for patient.
[2021-02-15] MEDS ORDERED: diphenhydrAMINE 50 MG/ML 1 ML VIAL ONE (09:26)
[2021-02-15] MEDS ORDERED: diphenhydrAMINE 50 MG/ML 1 ML VIAL IVP ONE (09:27)
[2021-02-15 09:47] LABS: Glucose,Whole Blood 109 mg/dL (75-99)
[2021-02-15 10:04] VITALS: BP 111/72; PULSE 66
[2021-02-15 10:37] LABS: Basophils # (A) 0.1 k/uL (0-0.2); Basophils % (A) 1 %; Eosinophils # (A) 0.2 k/uL (0-0.7); Eosinophils % (A) 3 %; HCT 42.4 % (39.0-53.0); HGB 14.4 gm/dL (13.0-17.5); Lymphocytes # (A) 2.5 k/uL (1.0-4.8); Lymphocytes % (A) 34 %; MCH 30.4 pg (25.0-35.0); MCHC 34.1 g/dL (31.0-37.0); MCV 89.1 fL (80.0-100.0); Mean Platelet Volume 8.5; Monocytes # (A) 0.6 k/uL (0-1.0); Monocytes % (A) 8 %; Neutrophils # (A) 3.9 k/uL (1.3-7.7); Neutrophils % (A) 53 %; Platelet Count 218 k/uL (150-450); RBC 4.75 m/uL (4.30-5.90); RDW 14.7 % (11.5-15.5); WBC 7.3 k/uL (3.8-10.6)
[2021-02-15 10:44] LABS: ALT 23 U/L (4-49); AST 27 U/L (17-59); African American GFR (CKD) >90 (>60 ml/min/1.73 sqM); Albumin 4.1 g/dL (3.5-5.0); Alkaline Phosphatase 76 U/L (38-126); Anion Gap 9 mmol/L; Blood Urea Nitrogen 11 mg/dL (9-20); Calcium 9.3 mg/dL (8.4-10.2); Carbon Dioxide 22 mmol/L (22-30); Chloride 109 mmol/L (98-107); Glucose 113 mg/dL (74-99); Non-African American GFR(CKD) >90 (>60 ml/min/1.73 sqM); Sodium 140 mmol/L (137-145); Total Bilirubin 0.4 mg/dL (0.2-1.3); Total Protein 6.8 g/dL (6.3-8.2)
[2021-02-15 16:56] LABS: Hemoglobin A1C 5.5 % (4.0-6.0)
== END 2021-02-15 10:29 | disposition home or self-care (01) ==
LOC: ORWHC2ENDO 07:52
PROVIDERS: ATTEND Surgery
DX: K29.50 Unspecified chronic gastritis without bleeding (principal); B96.81 Helicobacter pylori [H. pylori] as the cause of diseases classified elsewhere; K21.9 Gastro-esophageal reflux disease without esophagitis; E11.9 Type 2 diabetes mellitus without complications; F17.210 Nicotine dependence, cigarettes, uncomplicated; F31.9 Bipolar disorder, unspecified; I10 Essential (primary) hypertension; L40.9 Psoriasis, unspecified; F90.9 Attention-deficit hyperactivity disorder, unspecified type; F41.9 Anxiety disorder, unspecified; J45.909 Unspecified asthma, uncomplicated; Z88.8 Allergy status to other drugs, medicaments and biological substances; K58.0 Irritable bowel syndrome with diarrhea; Z88.5 Allergy status to narcotic agent
CPT/HCPCS: 88305; 80053; 85025; 88342; 83036; 43239; J1200; J2405; J2001; J2704

== ENCOUNTER 2021-10-02 17:25 | Emergency (ER) | payer OTHER ==
[2021-10-02 17:32] VITALS: BP 123/79; PULSE 84; RESP 18; TEMP 98.1
--- NOTE | 2021-10-02 17:49 | ED ---
ENT HPI - General Chief complaint: ENT Stated complaint: Ear problems Time Seen by Provider: 10/02/21 17:35 Source: patient Mode of arrival: ambulatory - History of Present Illness Initial comments: Patient is a 31-year-old male presenting with chief complaint of ear pain. Patient states he has been experiencing bilateral ear pain over the last week. Patient states that the pain has been increasing with intensity and is worse on the right side. Patient is having hearing difficulties, states that he feels as though he is under water. Patient states that the pain is sharp and throbbing, and occasionally radiates down to the jaw. Patient has been taking Motrin, Tylenol, and old antibiotic from an unfinished course. Patient denies any fever, chills, nausea, vomiting, headache, vision or hearing changes, neck stiffness, chest pain, shortness of breath, sore throat, dysphagia, abdominal pain, weakness. - Related Data Previous Rx's Medication Instructions Recorded Amoxic-Pot Clav 875-125Mg 1 tab PO BID 7 Days #14 tab 10/02/21 [Augmentin 875-125] Wyaddfuj-Jiloltjvq-Rl Otic 2 drops BOTH EARS TID 7 Days #10 ml 10/02/21 [Cortisporin Otic Soln] methylPREDNISolone [Medrol Dose 4 mg PO DIRECTED #1 packet 10/02/21 Pack] Allergies Allergy/AdvReac Type Severity Reaction Status Date / Time acetaminophen Allergy Rash/Hives Verified 10/02/21 17:45 codeine Allergy Rash/Hives Verified 10/02/21 17:45 divalproex sodium Allergy Unknown Verified 10/02/21 17:45 [From Depakote] methylphenidate Allergy Unknown Verified 10/02/21 17:45 [From Daytrana] risperidone [From Risperdal] Allergy Unknown Verified 10/02/21 17:45 trazodone Allergy Unknown Verified 10/02/21 17:45 Review of Systems ROS Statement: Those systems with pertinent positive or pertinent negative responses have been documented in the HPI. ROS Other: All systems not noted in ROS Statement are negative. Past Medical History Past Medical History: Asthma, Chest Pain / Angina, GERD/Reflux, Hypertension, Skin Disorder, Syncope Additional Past Medical History / Comment(s): Anemia, hx fx rib area, daily diarrhea, IBS, daily vomiting, "I was told liver slowly shutting down", Psoriasis, "borderline diabetic"-watches diet, limps due to bad hip. "Treated for Parasite after last EGD, symptoms only got worse." History of Any Multi-Drug Resistant Organisms: None Reported Past Surgical History: Orthopedic Surgery Additional Past Surgical History / Comment(s): ORIF right wrist/hardware later removed, EGD. Past Anesthesia/Blood Transfusion Reactions: Previous Problems w/ Anesthesia Additional Past Anesthesia/Blood Transfusion Reaction / Comment(s): Woke up during middle of surgery. Past Psychological History: ADD/ADHD, Anxiety, Bipolar, Depression, Schizophrenia Smoking Status: Current every day smoker Past Alcohol Use History: None Reported Past Drug Use History: Marijuana - Past Family History Mother Family Medical History: No Reported History General Exam Limitations: no limitations General appearance: alert, in no apparent distress Head exam: Present: atraumatic, normocephalic, normal inspection Eye exam: Present: normal appearance, EOMI. Absent: scleral icterus Expanded TM/Canal exam: Erythema: Right TM (No mastoid redness or tenderness), Effusion: Right TM, Left TM, Canal Tenderness: Right TM, Left TM Neck exam: Present: normal inspection Respiratory exam: Present: normal lung sounds bilaterally. Absent: respiratory distress, wheezes, rales, rhonchi, stridor Cardiovascular Exam: Present: regular rate, normal rhythm, normal heart sounds. Absent: systolic murmur, diastolic murmur, rubs, gallop, clicks Neurological exam: Present: alert, oriented X3, CN II-XII intact Psychiatric exam: Present: normal affect, normal mood Skin exam: Present: warm, dry, intact, normal color. Absent: rash Course Vital Signs 10/02/21 17:28 Temperature 98.1 F Pulse Rate 84 Respiratory 18 Rate Blood Pressure 123/79 O2 Sat by Pulse 100 Oximetry Medical Decision Making - Medical Decision Making Patient is a 31-year-old male presenting with chief complaint of bilateral ear pain, worse on the right side, for the last week. He admits to decreased hearing, clear otorrhea, radiation of pain to the jaw. Patient states he gets ear infections every month, but this one is much worse than usual. On examination there is bilateral canal redness and tenderness, erythema of the right tympanic membrane, bilateral effusion, and no mastoid erythema or ten derness. Patient is having difficulty hearing. Patient will be sent with prescription for Augmentin 875 twice a day for 7 days, polymyxin B ear drops for 7 days, and Medrol Dosepak. I encouraged the patient to take Motrin, Tylenol, oqtt-mof-avylrey antihistamine, and Flonase. Follow-up with PCP this week. Follow-up with ENT if recurrent ear infections persists. Report back to ER if any worsening symptoms. Educated the patient return parameters and all questions. Patient conveyed verbal understanding and agreed to the plan. Disposition Clinical Impression: Otitis media, Otitis externa Disposition: HOME SELF-CARE Condition: Good Instructions (If sedation given, give patient instructions): Ear Infection (ED), Earache (ED) Additional Instructions: Take medication as prescribed. For symptomatic treatment take hruu-bfj-bfcienh allergy medication (such as severe tach, Renee, Claritin, etc.) and Flonase. Take motrin for pain relief. Follow-up with PCP in one to 2 days. Follow-up with ENT if recurrent ear infections persist. Report back to ER with any worsening symptoms, including but not limited to fever, chills, or redness, pain, swelling behind the ear. Prescriptions: Amoxic-Pot Clav 875-125Mg [Augmentin 875-125] 1 tab PO BID 7 Days #14 tab Rleqyrvz-Bclpylrlt-At Otic [Cortisporin Otic Soln] 2 drops BOTH EARS TID 7 Days #10 ml methylPREDNISolone [Medrol Dose Pack] 4 mg PO DIRECTED #1 packet Is patient prescribed a controlled substance at d/c from ED?: No Referrals: Sandeep Larsen MD [STAFF PHYSICIAN] - 1-2 days Time of Disposition: 17:49
== END 2021-10-02 18:15 | disposition home or self-care (01) ==
LOC: EC 17:25
DX: H66.93 Otitis media, unspecified, bilateral (principal); H60.93 Unspecified otitis externa, bilateral; J45.909 Unspecified asthma, uncomplicated; I10 Essential (primary) hypertension; F17.200 Nicotine dependence, unspecified, uncomplicated; Z88.6 Allergy status to analgesic agent; Z88.5 Allergy status to narcotic agent; Z88.1 Allergy status to other antibiotic agents; Z88.9 Allergy status to unspecified drugs, medicaments and biological substances; Z88.8 Allergy status to other drugs, medicaments and biological substances
CPT/HCPCS: 99283

== ENCOUNTER 2023-07-23 15:53 | Emergency (ER) | payer OTHER ==
--- NOTE | 2023-07-23 16:32 | ED ---
General Adult HPI - General Chief complaint: Upper Respiratory Infection Stated complaint: COUGH Time Seen by Provider: 07/23/23 16:09 Source: patient, RN notes reviewed Mode of arrival: ambulatory Limitations: no limitations - History of Present Illness Initial comments: 32-year-old male presents to the emergency department for evaluation of cough, chest congestion, nasal congestion, ear pain. He reports that these symptoms have been going on for around a month. He does report taking a COVID test 2 to 3 days ago because his mother was exposed to COVID. He admits to productive cough and nasal discharge. Denies fever, chills. - Related Data Home Medications Medication Instructions Recorded Confirmed No Known Home Medications 08/09/22 08/09/22 Allergies Allergy/AdvReac Type Severity Reaction Status Date / Time acetaminophen Allergy Rash/Hives Verified 08/09/22 21:41 codeine Allergy Rash/Hives Verified 08/09/22 21:41 divalproex sodium Allergy Unknown Verified 08/09/22 21:41 [From Depakote] methylphenidate Allergy Unknown Verified 08/09/22 21:41 [From Daytrana] risperidone [From Risperdal] Allergy Unknown Verified 08/09/22 21:41 trazodone Allergy Unknown Verified 08/09/22 21:41 Review of Systems ROS Statement: Those systems with pertinent positive or pertinent negative responses have been documented in the HPI. ROS Other: All systems not noted in ROS Statement are negative. Past Medical History Past Medical History: Asthma, Chest Pain / Angina, GERD/Reflux, Hypertension, Skin Disorder, Syncope Additional Past Medical History / Comment(s): Anemia, hx fx rib area, daily diarrhea, IBS, daily vomiting, "I was told liver slowly shutting down", Psoriasis, "borderline diabetic"-watches diet, limps due to bad hip. "Treated for Parasite after last EGD, symptoms only got worse." History of Any Multi-Drug Resistant Organisms: None Reported Past Surgical History: Orthopedic Surgery Additional Past Surgical History / Comment(s): ORIF right wrist/hardware later removed, EGD. Past Anesthesia/Blood Transfusion Reactions: Previous Problems w/ Anesthesia Additional Past Anesthesia/Blood Transfusion Reaction / Comment(s): Woke up during middle of surgery. Past Psychological History: ADD/ADHD, Anxiety, Bipolar, Depression, Schizophrenia Smoking Status: Vaper Past Alcohol Use History: None Reported Past Drug Use History: Marijuana - Past Family History Mother Family Medical History: No Reported History General Exam Limitations: no limitations General appearance: alert, in no apparent distress Head exam: Present: atraumatic, normocephalic, normal inspection Eye exam: Present: normal appearance, PERRL, EOMI. Absent: scleral icterus, conjunctival injection, periorbital swelling ENT exam: Present: normal exam, mucous membranes moist, TM's normal bilaterally, normal external ear exam Neck exam: Present: normal inspection, full ROM. Absent: tenderness, meningismus, lymphadenopathy Respiratory exam: Present: wheezes. Absent: respiratory distress, rales, rhonchi, stridor Cardiovascular Exam: Present: regular rate, normal rhythm, normal heart sounds. Absent: systolic murmur, diastolic murmur, rubs, gallop, clicks GI/Abdominal exam: Present: soft, normal bowel sounds. Absent: distended, tenderness, guarding, rebound, rigid Extremities exam: Present: normal inspection, full ROM, normal capillary refill. Absent: tenderness, pedal edema, joint swelling, calf tenderness Neurological exam: Present: alert, oriented X3 Psychiatric exam: Present: normal affect, normal mood Skin exam: Present: warm, dry, intact, normal color. Absent: rash Course Vital Signs 07/23/23 07/23/23 16:05 17:57 Temperature 98.5 F Pulse Rate 88 88 Respiratory 20 18 Rate Blood Pressure 134/79 132/74 O2 Sat by Pulse 97 96 Oximetry Medical Decision Making - Medical Decision Making Was pt. sent in by a medical professional or institution (, PA, MECHANICAL ENGINEERING DRAFTSPERSON, urgent care, hospital, or jail...) When possible be specific @ -No Did you speak to anyone other than the patient for history (EMS, parent, family, police, friend...)? What history was obtained from this source @ -No Did you review nursing and triage notes (agree or disagree)? Why? @ -I reviewed and agree with nursing and triage notes Were old charts reviewed (outside hosp., previous admission, EMS record, old EKG, old radiological studies, urgent care reports/EKG's, jail records)? Report findings @ -No old charts were reviewed Differential Diagnosis (chest pain, altered mental status, abdominal pain women, abdominal pain men, vaginal bleeding, weakness, fever, dyspnea, syncope, head ache, dizziness, GI bleed, back pain, seizure, CVA, palpatations, mental health, musculoskeletal)? @ -COVID, influenza, RSV, otitis media, pneumonia, this list is not all inclusive EKG interpreted by me (3pts min.). @ -EKG at 1647 shows sinus rhythm rate 70, SD 183, QRS 100, QTQTc [id number] X-rays interpreted by me (1pt min.). @ -Chest x-ray shows no acute process CT interpreted by me (1pt min.). @ -None done U/S interpreted by me (1pt. min.). @ -None done What testing was considered but not performed or refused? (CT, X-rays, U/S, labs)? Why? @ -None What meds were considered but not given or refused? Why? @ -None Did you discuss the management of the patient with other professionals (professionals i.e. , PA, MECHANICAL ENGINEERING DRAFTSPERSON, lab, RT, psych nurse, social group worker, scientific programmer, teacher, president and chief commercial officer, registered nurse hh case manager)? Give summary @ -No Was smoking cessation discussed for >3mins.? @ -No Was critical care preformed (if so, how long)? @ -No Were there social determinants of health that impacted care today? How? (Homelessness, low income, unemployed, alcoholism, drug addiction, transportation, low edu. Level, literacy, decrease access to med. care, residential, rehab)? @ -No Was there de-escalation of care discussed even if they declined (Discuss DNR or withdrawal of care, Hospice)? DNR status @ -No What co-morbidities impacted this encounter? (DM, HTN, Smoking, COPD, CAD, Cancer, CVA, ARF, Chemo, Hep., AIDS, mental health diagnosis, sleep apnea, morbid obesity)? @ -None Was patient admitted / discharged? Hospital course, mention meds given and route, prescriptions, significant lab abnormalities, going to OR and other pertinent info. @ -Left prior to test results completion. I was unable to review test results with the patient. X-ray obtained which shows no acute process. COVID, in fluenza, RSV negative. Patient left prior to discharge, AMA. Undiagnosed new problem with uncertain prognosis? @ -No Drug Therapy requiring intensive monitoring for toxicity (Heparin, Nitro, Insulin, Cardizem)? @ -No Were any procedures done? @ -No Diagnosis/symptom? @ -AMA, upper respiratory infection Acute, or Chronic, or Acute on Chronic? @ -acute Uncomplicated (without systemic symptoms) or Complicated (systemic symptoms)? @ -uncomplicated Side effects of treatment? @ -No Exacerbation, Progression, or Severe Exacerbation? @ -No Poses a threat to life or bodily function? How? (Chest pain, USA, PA, pneumonia, PE, COPD, DKA, ARF, appy, cholecystitis, CVA, Diverticulitis, Homicidal, Suicidal, threat to staff... and all critical care pts) @ -No - Lab Data Lab Results 07/23/23 Range/Units 17:00 Influenza Type A (PCR) Not Detected (Not Detectd) Influenza Type B (PCR) Not Detected (Not Detectd) RSV (PCR) Not Detected (Not Detectd) SARS-CoV-2 (PCR) Not Detected (Not Detectd) Disposition Clinical Impression: Upper respiratory infection Disposition: LEFT AGAINST MEDICAL ADVICE Condition: Stable Instructions (If sedation given, give patient instructions): Upper Respiratory Infection (ED) Is patient prescribed a controlled substance at d/c from ED?: No Referrals: None,Stated [Primary Care Provider] - 1-2 days
[2023-07-23 16:41] VITALS: PULSE 88; TEMP 98.5
--- NOTE | 2023-07-23 17:11 | XR ---
EXAMINATION TYPE: XR chest 2V DATE OF EXAM: 07/23/2023 5:03 PM CLINICAL INDICATION:Male, 32 years old with history of cough; COMPARISON: Chest radiographs from 10/29/2020. TECHNIQUE: XR chest 2V Frontal and lateral views of the chest. FINDINGS: Lungs/Pleura: There is no evidence of pleural effusion, focal consolidation, or pneumothorax. Pulmonary vascularity: Unremarkable. Heart/mediastinum: Cardiomediastinal silhouette is unremarkable. Musculoskeletal: No acute osseous pathology. IMPRESSION: No acute cardiopulmonary disease/process.
[2023-07-23] MEDS: IPRATROPIUM-ALBUTEROL 3 ML NEB INHALATION STA (17:57)
[2023-07-23 18:01] VITALS: BP 132/74; RESP 18
== END 2023-07-23 18:01 | disposition left against medical advice (07) ==
LOC: EC 15:53
DX: J06.9 Acute upper respiratory infection, unspecified (principal); J45.909 Unspecified asthma, uncomplicated; I10 Essential (primary) hypertension; F12.90 Cannabis use, unspecified, uncomplicated; F17.290 Nicotine dependence, other tobacco product, uncomplicated; Z86.59 Personal history of other mental and behavioral disorders; Z88.5 Allergy status to narcotic agent; Z88.8 Allergy status to other drugs, medicaments and biological substances; Z53.29 Procedure and treatment not carried out because of patient's decision for other reasons; Z20.822 Contact with and (suspected) exposure to COVID-19
CPT/HCPCS: 71046; 87636; 93005; 99284

== ENCOUNTER 2023-12-08 02:56 | Emergency (ER) | payer OTHER ==
--- NOTE | 2023-12-08 03:35 | ED ---
ENT HPI - General Chief complaint: Dental/Oral Stated complaint: Tooth pain Time Seen by Provider: 12/08/23 03:13 Source: patient, RN notes reviewed Mode of arrival: ambulatory Limitations: no limitations - History of Present Illness Initial comments: 33-year-old male presenting to the ED with chief complaint of dental pain. Pain affects the bottom right lower teeth. Patient states has been ongoing issue for the past few months however increasing worse over the past few days. Reports he is having difficulties sleeping because of this. No difficulties breathing. No difficulty swallowing. No fever or chills. Is following up with a dentist for this. No fever or chills. No other complaints at this time. - Related Data Previous Rx's Medication Instructions Recorded Amoxic-Pot Clav 875-125Mg 1 tab PO Q12HR 7 Days #14 tab 12/08/23 [Augmentin 875-125] Ibuprofen [Motrin] 600 mg PO Q8HR PRN #30 tab 12/08/23 Allergies Allergy/AdvReac Type Severity Reaction Status Date / Time acetaminophen Allergy Rash/Hives Verified 12/08/23 03:10 codeine Allergy Rash/Hives Verified 12/08/23 03:10 divalproex sodium Allergy Unknown Verified 12/08/23 03:10 [From Depakote] methylphenidate Allergy Unknown Verified 12/08/23 03:10 [From Daytrana] risperidone [From Risperdal] Allergy Unknown Verified 12/08/23 03:10 trazodone Allergy Unknown Verified 12/08/23 03:10 Review of Systems ROS Statement: Those systems with pertinent positive or pertinent negative responses have been documented in the HPI. ROS Other: All systems not noted in ROS Statement are negative. Past Medical History Past Medical History: Asthma, Chest Pain / Angina, GERD/Reflux, Hypertension, Skin Disorder, Syncope Additional Past Medical History / Comment(s): Anemia, hx fx rib area, daily diarrhea, IBS, daily vomiting, "I was told liver slowly shutting down", Psoriasis, "borderline diabetic"-watches diet, limps due to bad hip. "Treated for Parasite after last EGD, symptoms only got worse." History of Any Multi-Drug Resistant Organisms: None Reported Past Surgical History: Orthopedic Surgery Additional Past Surgical History / Comment(s): ORIF right wrist/hardware later removed, EGD. Past Anesthesia/Blood Transfusion Reactions: Previous Problems w/ Anesthesia Additional Past Anesthesia/Blood Transfusion Reaction / Comment(s): Woke up during middle of surgery. Past Psychological History: ADD/ADHD, Anxiety, Bipolar, Depression, Schizophrenia Smoking Status: Current every day smoker, Vaper - Past Family History Mother Family Medical History: No Reported History General Exam Limitations: no limitations General appearance: alert, in no apparent distress Eye exam: Present: normal appearance ENT exam: Present: other (Poor dentition. Notable dental cavities of the oral right molar/premolar. No significant oropharyngeal swelling. Tolerating secretions. No stridor. No evidence of Vicente's angina at this time.) Neck exam: Present: normal inspection Respiratory exam: Present: normal lung sounds bilaterally Cardiovascular Exam: Present: regular rate GI/Abdominal exam: Present: soft, normal bowel sounds. Absent: distended, tenderness, guarding, rebound, rigid Neurological exam: Present: alert, oriented X3 Skin exam: Present: warm, dry Course Vital Signs 12/08/23 03:06 Temperature 97.5 F L Pulse Rate 73 Respiratory 19 Rate Blood Pressure 128/80 O2 Sat by Pulse 96 Oximetry Medical Decision Making - Medical Decision Making Was pt. sent in by a medical professional or institution (, PA, WEATHERIZATION INSTALLER, urgent care, hospital, or usp...) When possible be specific @ -No Did you speak to anyone other than the patient for history (EMS, parent, family, police, friend...)? What history was obtained from this source @ -No Did you review nursing and triage notes (agree or disagree)? Why? @ -I reviewed and agree with nursing and triage notes Were old charts reviewed (outside hosp., previous admission, EMS record, old EKG, old radiological studies, urgent care reports/EKG's, usp records)? Report findings @ -No old charts were reviewed Differential Diagnosis (chest pain, altered mental status, abdominal pain women, abdominal pain men, vaginal bleeding, weakness, fever, dyspnea, syncope, headache, dizziness, GI bleed, back pain, seizure, CVA, palpatations, mental health, musculoskeletal)? @ -Dental carry, periapical abscess, apical abscess, Vicente syndrome This not meant to be an inclusive list. EKG interpreted by me (3pts min.). @ -None X-rays interpreted by me (1pt min.). @ -None done CT interpreted by me (1pt min.). @ -None done U/S interpreted by me (1pt. min.). @ -None done What testing was considered but not performed or refused? (CT, X-rays, U/S, labs)? Why? @ -None What meds were considered but not given or refused? Why? @ -None Did you discuss the management of the patient with other professionals (professionals i.e. DrDeion, PA, WEATHERIZATION INSTALLER, lab, RT, psych nurse, nephrology social worker, school laboratory technician, teacher, airfield services officer, case worker)? Give summary @ -No Was smoking cessation discussed for >3mins.? @ -No Was critical care preformed (if so, how long)? @ -No Were there social determinants of health that impacted care today? How? (Homelessness, low income, unemployed, alcoholism, drug addiction, transportation, low edu. Level, literacy, decrease access to med. care, intermediate, rehab)? @ -No Was there de-escalation of care discussed even if they declined (Discuss DNR or withdrawal of care, Hospice)? DNR status @ -No What co-morbidities impacted this encounter? (DM, HTN, Smoking, COPD, CAD, Cancer, CVA, ARF, Chemo, Hep., AIDS, mental health diagnosis, sleep apnea, morbid obesity)? @ -None Was patient admitted / discharged? Hospital course, mention meds given and route, prescriptions, significant lab abnormalities, going to OR and other pertinent info. @ -Discharge 33-year-old male presented to the ED with a chief complaint of dental pain. On examination there is no significant oropharyngeal swelling. Does have dental cavities of lower right teeth. Tolerating secretions. No stridor. No evidence of respiratory distress. No evidence of Vicente syndrome at this time. Vital signs stable afebrile. Patient provided analgesia here and discharged home with starter packs for Augmentin. Also provided prescription for Augmentin and ibuprofen. Advise close follow-up with dentist. Discharged home in stable condition. Discussed return precautions with patient who verbalized agreement. Undiagnosed new problem with uncertain prognosis? @ -No Drug Therapy requiring intensive monitoring for toxicity (Heparin, Nitro, Insulin, Cardizem)? @ -No Were any procedures done? @ -No Diagnosis/symptom? @ -Dental pain Acute, or Chronic, or Acute on Chronic? @ -Acute Uncomplicated (without systemic symptoms) or Complicated (systemic symptoms)? @ -Uncomplicated Side effects of treatment? @ -No Exacerbation, Progression, or Severe Exacerbation? @ -No Poses a threat to life or bodily function? How? (Chest pain, USA, [place], pneumonia, PE, COPD, DKA, ARF, appy, cholecystitis, CVA, Diverticulitis, Homicidal, Suicidal, threat to staff... and all critical care pts) @ -No Disposition Clinical Impression: Pain, dental Disposition: HOME SELF-CARE Condition: Good Instructions (If sedation given, give patient instructions): Toothache (ED) Additional Instructions: Please return to the Emergency Department if symptoms worsen or any other concerns. Please follow-up with a dentist. Take antibiotics as prescribed. Prescriptions: Amoxic-Pot Clav 875-125Mg [Augmentin 875-125] 1 tab PO Q12HR 7 Days #14 tab Ibuprofen [Motrin] 600 mg PO Q8HR PRN #30 tab PRN Reason: Pain Is patient prescribed a controlled substance at d/c from ED?: No Referrals: None,Stated [Primary Care Provider] - 1-2 days Time of Disposition: 03:38
[2023-12-08] MEDS: HYDROmorphone 0.5 MG/0.5 ML SYRINGE IM STA (04:06)
[2023-12-08] MEDS: KETOROLAC 15 MG/ML 1 ML VIAL IM STA (04:07)
[2023-12-08] MEDS: AMOXIC-POT CLAV 875MG STARTER PACK 2 TAB BTL PO STA (04:08)
[2023-12-08] MEDS: traMADol 50 MG STARTER PACK 3 TAB BTL PO STA (04:08)
[2023-12-08 05:09] VITALS: BP 99/64; PULSE 66; RESP 16; TEMP 97.8
== END 2023-12-08 05:10 | disposition home or self-care (01) ==
LOC: EC 02:56
DX: K08.89 Other specified disorders of teeth and supporting structures (principal); F17.290 Nicotine dependence, other tobacco product, uncomplicated; Z88.8 Allergy status to other drugs, medicaments and biological substances; Z88.5 Allergy status to narcotic agent
CPT/HCPCS: 99282; 96372 ×2; J1885; J1170

== ENCOUNTER 2024-05-07 10:01 | Emergency (ER) | payer OTHER ==
[2024-05-07] MEDS: KETOROLAC 15 MG/ML 1 ML VIAL IM STA (12:16)
[2024-05-07] MEDS: HYDROCORTISONE SUPPOSITORY 25 MG SUPP RECTAL STA (12:52)
[2024-05-07] MEDS: HYDROCORTISONE 1% CREAM 30 GM TUBE TOPICAL STA (12:52)
[2024-05-07 12:53] VITALS: BP 118/72; PULSE 77; RESP 18; TEMP 98.1
[2024-05-07 13:11] LABS: Basophils % (A) 0 %; Eosinophils # (A) 0.1 k/uL (0-0.7); Eosinophils % (A) 1 %; HGB 13.9 gm/dL (13.0-17.5); Lymphocytes # (A) 1.7 k/uL (1.0-4.8); Lymphocytes % (A) 16 %; MCH 29.9 pg (25.0-35.0); MCHC 33.2 g/dL (31.0-37.0); Mean Platelet Volume 8.3; Monocytes # (A) 0.7 k/uL (0-1.0); Monocytes % (A) 7 %; Neutrophils # (A) 8.2 k/uL (1.3-7.7); Neutrophils % (A) 75 %; Platelet Count 247 k/uL (150-450); RBC 4.67 m/uL (4.30-5.90); RDW 13.9 % (11.5-15.5); WBC 10.9 k/uL (3.8-10.6)
--- NOTE | 2024-05-07 13:44 | ED ---
General Adult HPI - General Chief complaint: Abdominal Pain Stated complaint: Hemorrhoid Time Seen by Provider: 05/07/24 11:09 Source: patient, RN notes reviewed Mode of arrival: ambulatory Limitations: no limitations - History of Present Illness Initial comments: This is a 33-year-old male with rectal pain (8.5/10) x 3 days. Patient states he noted a lump near his rectum 1 week ago with pain starting past several days. Patient endorses recent having bloating and constipation with straining. Patient states pain occasionally radiates to his testes. Endorses history of hemorrhoids. Patient denies rectal bleeding symptoms, abdominal pain. Denies fever, chills, chest pain, dyspnea, abdominal pain, hematochezia, melena, hematuria, dysuria. Onset/Timin -: days(s) Location: buttocks Radiation: other (Test) Severity scale (1-10): 9 Consistency: constant Worsens with: movement, other (Sitting, straining) Associated Symptoms: denies other symptoms Treatments Prior to Arrival: NSAID - Related Data Previous Rx's Medication Instructions Recorded Amoxic-Pot Clav 875-125Mg 1 tab PO Q12HR 7 Days #14 tab 12/08/23 [Augmentin 875-125] Ibuprofen [Motrin] 600 mg PO Q8HR PRN #30 tab 12/08/23 Hydrocortisone Suppository 25 mg RECTAL BID #25 suppositor 05/07/24 [Anusol-Hc] Allergies Allergy/AdvReac Type Severity Reaction Status Date / Time acetaminophen Allergy Rash/Hives Verified 05/07/24 10:11 codeine Allergy Rash/Hives Verified 05/07/24 10:11 divalproex sodium Allergy Unknown Verified 05/07/24 10:11 [From Depakote] methylphenidate Allergy Unknown Verified 05/07/24 10:11 [From Daytrana] risperidone [From Risperdal] Allergy Unknown Verified 05/07/24 10:11 trazodone Allergy Unknown Verified 05/07/24 10:11 Review of Systems ROS Statement: Those systems with pertinent positive or pertinent negative responses have been documented in the HPI. ROS Other: All systems not noted in ROS Statement are negative. Past Medical History Past Medical History: Asthma, Chest Pain / Angina, GERD/Reflux, Hypertension, Skin Disorder, Syncope Additional Past Medical History / Comment(s): Anemia, hx fx rib area, daily diarrhea, IBS, daily vomiting, "I was told liver slowly shutting down", Psoriasis, "borderline diabetic"-watches diet, limps due to bad hip. "Treated for Parasite after last EGD, symptoms only got worse." History of Any Multi-Drug Resistant Organisms: None Reported Past Surgical History: Orthopedic Surgery Additional Past Surgical History / Comment(s): ORIF right wrist/hardware later removed, EGD. Past Anesthesia/Blood Transfusion Reactions: Previous Problems w/ Anesthesia Additional Past Anesthesia/Blood Transfusion Reaction / Comment(s): Woke up during middle of surgery. Past Psychological History: ADD/ADHD, Anxiety, Bipolar, Depression, Schizophrenia Smoking Status: Current every day smoker, Vaper Past Alcohol Use History: None Reported Past Drug Use History: None Reported - Past Family History Mother Family Medical History: No Reported History General Exam Limitations: no limitations General appearance: alert, in no apparent distress Head exam: Present: atraumatic, normocephalic, normal inspection Eye exam: Present: normal appearance, PERRL, EOMI. Absent: scleral icterus, conjunctival injection, periorbital swelling ENT exam: Present: normal exam, mucous membranes moist Neck exam: Present: normal inspection. Absent: tenderness, meningismus, lymphadenopathy Respiratory exam: Present: normal lung sounds bilaterally. Absent: respiratory distress, wheezes, rales, rhonchi, stridor Cardiovascular Exam: Present: regular rate, normal rhythm, normal heart sounds. Absent: systolic murmur, diastolic murmur, rubs, gallop, clicks GI/Abdominal exam: Present: soft, normal bowel sounds. Absent: distended, tenderness, guarding, rebound, rigid Rectal exam: Present: normal rectal tone, heme (-) stool, mass (2 cm flesh- colored mass noted outside of rectal dentate line at 12 o'clock position. No obvious overlying erythema, thrombosis, discharge), tenderness (Significant tenderness to palpation of perirectal mass and during PABLO), normal prostate. Absent: fecal impaction Extremities exam: Present: normal inspection, full ROM, normal capillary refill. Absent: tenderness, pedal edema, joint swelling, calf tenderness Back exam: Present: normal inspection Neurological exam: Present: alert, oriented X3, CN II-XII intact Psychiatric exam: Present: normal affect, normal mood Skin exam: Present: warm, dry, intact, normal color. Absent: rash Course Vital Signs 05/07/24 05/07/24 10:09 12:52 Temperature 98.5 F 98.1 F Pulse Rate 115 H 77 Respiratory 20 18 Rate Blood Pressure 116/77 118/72 O2 Sat by Pulse 97 98 Oximetry Medical Decision Making - Medical Decision Making Was pt. sent in by a medical professional or institution (, ANJEL, AUTOMATION AND CONTROLS INSTRUCTOR, urgent care, hospital, or senior care...) When possible be specific @ -No Did you speak to anyone other than the patient for history (EMS, parent, family, police, friend...)? What history was obtained from this source @ -No Did you review nursing and triage notes (agree or disagree)? Why? @ -I reviewed and agree with nursing and triage notes Were old charts reviewed (outside hosp., previous admission, EMS record, old EKG, old radiological studies, urgent care reports/EKG's, senior care records)? Report findings @ -No old charts were reviewed Differential Diagnosis (chest pain, altered mental status, abdominal pain women, abdominal pain men, vaginal bleeding, weakness, fever, dyspnea, syncope, headache, dizziness, GI bleed, back pain, seizure, CVA, palpatations, mental health, musculoskeletal)? @ -Differential Abdominal Pain Men: Appendicitis, cholecystitis, diverticulosis, ischemic bowel, pancreatitis, hepatitis, UTI, gastroenteritis, AAA, incarcerated hernia, bowel obstruction, constipation, inflammatory bowel, hepatitis, peptic ulcer disease, splenic infarction, perforated viscus, testicular torsion, external hemorrhoid, pilonidal cyst, perirectal abscess this is not meant to be an all-inclusive list EKG interpreted by me (3pts min.). @ -Not done X-rays interpreted by me (1pt min.). @ -None done CT interpreted by me (1pt min.). @ -Pelvic CT revealed no obvious abscess or significant abnormality. U/S interpreted by me (1pt. min.). @ -None done What testing was considered but not performed or refused? (CT, X-rays, U/S, labs)? Why? @ -None What meds were considered but not given or refused? Why? @ -None Did you discuss the management of the patient with other professionals (professionals i.e. , ANJEL, AUTOMATION AND CONTROLS INSTRUCTOR, lab, RT, psych nurse, case worker, urban renewal manager, teacher, contracting officer, community case manager)? Give summary @ -No Was smoking cessation discussed for >3mins.? @ -No Was critical care preformed (if so, how long)? @ -No Were there social determinants of health that impacted care today? How? (Homelessness, low income, unemployed, alcoholism, drug addiction, transportation, low edu. Level, literacy, decrease access to med. care, usp, rehab)? @ -No Was there de-escalation of care discussed even if they declined (Discuss DNR or withdrawal of care, Hospice)? DNR status @ -No What co-morbidities impacted this encounter? (DM, HTN, Smoking, COPD, CAD, Cancer, CVA, ARF, Chemo, Hep., AIDS, mental health diagnosis, sleep apnea, morbid obesity)? @ -None Was patient admitted / discharged? Hospital course, mention meds given and route, prescriptions, significant lab abnormalities, going to OR and other pertinent info. @ -Lab work shows slightly elevated leukocytosis of 10.9 with left shift. Stool occult blood was negative. Unable to determine if mass is hemorrhoid versus abscess due to presence outside of anal dentate line. Pelvic CT revealed no obvious abscess or significant abnormality. Patient provided hydrocortisone cream bottle and hydrocortisone suppository both in ER and additional sent to pharmacy. Advised sitz bath for 20 minutes up to 4 times daily. Undiagnosed new problem with uncertain prognosis? @ -No Drug Therapy requiring intensive monitoring for toxicity (Heparin, Nitro, Insulin, Cardizem)? @ -No Were any procedures done? @ -No Diagnosis/symptom? @ -External hemorrhoid Acute, or Chronic, or Acute on Chronic? @ -Acute Uncomplicated (without systemic symptoms) or Complicated (systemic symptoms)? @ -Uncomplicated Side effects of treatment? @ -No Exacerbation, Progression, or Severe Exacerbation? @ -No Poses a threat to life or bodily function? How? (Chest pain, [place], [place], pneumonia, PE, COPD, DKA, ARF, appy, cholecystitis, CVA, Diverticulitis, Homicidal, Suicidal, threat to staff... and all critical care pts) @ -No - Lab Data Result diagrams: 05/07/24 12:58 05/07/24 12:58 Lab Results 05/07/24 05/07/24 05/07/24 Range/Units 12:14 12:58 12:58 WBC 10.9 H (3.8-10.6) k/uL RBC 4.67 (4.30-5.90) m/uL Hgb 13.9 (13.0-17.5) gm/dL Hct 42.0 (39.0-53.0) % MCV 90.0 (80.0-100.0) fL MCH 29.9 (25.0-35.0) pg MCHC 33.2 (31.0-37.0) g/dL RDW 13.9 (11.5-15.5) % Plt Count 247 (150-450) k/uL MPV 8.3 Neutrophils % 75 % Lymphocytes % 16 % Monocytes % 7 % Eosinophils % 1 % Basophils % 0 % Neutrophils # 8.2 H (1.3-7.7) k/uL Lymphocytes # 1.7 (1.0-4.8) k/uL Monocytes # 0.7 (0-1.0) k/uL Eosinophils # 0.1 (0-0.7) k/uL Basophils # 0.0 (0-0.2) k/uL Sodium 141 (137-145) mmol/L Potassium 4.1 (3.5-5.1) mmol/L Chloride 107 (98-107) mmol/L Carbon Dioxide 25 (22-30) mmol/L Anion Gap 9 mmol/L BUN 15 (9-20) mg/dL Creatinine 0.91 (0.66-1.25) mg/dL Est GFR (CKD-EPI)AfAm >90 (>60 ml/min/1.73 sqM) Est GFR (CKD-EPI)NonAf >90 (>60 ml/min/1.73 sqM) Glucose 103 H (74-99) mg/dL Calcium 9.7 (8.4-10.2) mg/dL Total Bilirubin 1.0 (0.2-1.3) mg/dL AST 15 L (17-59) U/L ALT 16 (4-49) U/L Alkaline Phosphatase 60 (38-126) U/L Total Protein 7.8 (6.3-8.2) g/dL Albumin 4.8 (3.5-5.0) g/dL Stool Occult Blood Negative (Negative) Disposition Clinical Impression: Acute hemorrhoid Disposition: HOME SELF-CARE Condition: Good Prescriptions: Hydrocortisone Suppository [Anusol-Hc] 25 mg RECTAL BID #25 suppositor Is patient prescribed a controlled substance at d/c from ED?: No Referrals: None,Stated [Primary Care Provider] - 1-2 days Time of Disposition: 14:23
[2024-05-07 13:47] LABS: ALT 16 U/L (4-49); AST 15 U/L (17-59); African American GFR (CKD) >90 (>60 ml/min/1.73 sqM); Albumin 4.8 g/dL (3.5-5.0); Alkaline Phosphatase 60 U/L (38-126); Anion Gap 9 mmol/L; Blood Urea Nitrogen 15 mg/dL (9-20); Calcium 9.7 mg/dL (8.4-10.2); Carbon Dioxide 25 mmol/L (22-30); Chloride 107 mmol/L (98-107); Glucose 103 mg/dL (74-99); Non-African American GFR(CKD) >90 (>60 ml/min/1.73 sqM); Potassium 4.1 mmol/L (3.5-5.1); Sodium 141 mmol/L (137-145); Total Protein 7.8 g/dL (6.3-8.2)
--- NOTE | 2024-05-07 14:14 | CT ---
CT Pelvis with contrast. HISTORY: Perirectal pain, hemorrhoids versus abscess. COMPARISON: None. TECHNIQUE: Multiple axial images are obtained through the pelvis following the uneventful administrat ion of nonionic IV contrast material. FINDINGS: There is no pelvic mass, abscess, free fluid or adenopathy. The visualized bowel loops are normal. Ur inary bladder and prostate gland are unremarkable. The osseous structures are intact. IMPRESSION: No significant abnormality seen. [facility], , 05/07/2024 2:11 PM
[2024-05-07] MEDS: MAGNESIUM CITRATE 296 ML BOTTLE PO ONE (14:54)
== END 2024-05-07 14:57 | disposition home or self-care (01) ==
LOC: EC 10:01
DX: K64.4 Residual hemorrhoidal skin tags (principal); F17.290 Nicotine dependence, other tobacco product, uncomplicated; Z88.8 Allergy status to other drugs, medicaments and biological substances; Z88.5 Allergy status to narcotic agent
CPT/HCPCS: 96372 ×2; 99284 ×2; 36415; 80053; 85025; 82272; 72193; J1885; Q9967

== ENCOUNTER 2024-06-01 11:42 | Emergency (ER) | payer OTHER ==
--- NOTE | 2024-06-01 12:04 | ED ---
Nausea/Vomiting/Diarrhea HPI - General Chief complaint: Nausea/Vomiting/Diarrhea Stated complaint: Vomiting,dizziness Time Seen by Provider: 06/01/24 11:55 Source: patient, RN notes reviewed Mode of arrival: ambulatory Limitations: no limitations - History of Present Illness Initial comments: This is a 33-year-old male with a history of IBS and GERD presenting to the emergency department for complaint of nausea, vomiting, and abdominal pain that has been worsening over the past 3 weeks. Patient is concerned he is dehydrated as he been having a difficult time keeping down foods and liquids. Endorses chills with no reported fevers. endorses productive cough, congestion, and body aches. Denies hematemesis, coffee-ground emesis, melena, hematochezia. Has been experiencing diarrhea however this is normal for him. Denies previous surgical abdominal history - Related Data Previous Rx's Medication Instructions Recorded Amoxic-Pot Clav 875-125Mg 1 tab PO Q12HR 7 Days #14 tab 12/08/23 [Augmentin 875-125] Ibuprofen [Motrin] 600 mg PO Q8HR PRN #30 tab 12/08/23 Hydrocortisone Suppository 25 mg RECTAL BID #25 suppositor 05/07/24 [Anusol-Hc] Metoclopramide [Reglan] 10 mg PO TID PRN #15 tab 06/01/24 Allergies Allergy/AdvReac Type Severity Reaction Status Date / Time acetaminophen Allergy Rash/Hives Verified 06/01/24 11:54 codeine Allergy Rash/Hives Verified 06/01/24 11:54 divalproex sodium Allergy Unknown Verified 06/01/24 11:54 [From Depakote] methylphenidate Allergy Unknown Verified 06/01/24 11:54 [From Daytrana] risperidone [From Risperdal] Allergy Unknown Verified 06/01/24 11:54 trazodone Allergy Unknown Verified 06/01/24 11:54 Review of Systems ROS Statement: Those systems with pertinent positive or pertinent negative responses have been documented in the HPI. ROS Other: All systems not noted in ROS Statement are negative. Past Medical History Past Medical History: Asthma, Chest Pain / Angina, GERD/Reflux, Hypertension, Skin Disorder, Syncope Additional Past Medical History / Comment(s): Anemia, hx fx rib area, daily diarrhea, IBS, daily vomiting, "I was told liver slowly shutting down", Psoriasis, "borderline diabetic"-watches diet, limps due to bad hip. "Treated for Parasite after last EGD, symptoms only got worse." History of Any Multi-Drug Resistant Organisms: None Reported Past Surgical History: Orthopedic Surgery Additional Past Surgical History / Comment(s): ORIF right wrist/hardware later removed, EGD. Past Anesthesia/Blood Transfusion Reactions: Previous Problems w/ Anesthesia Additional Past Anesthesia/Blood Transfusion Reaction / Comment(s): Woke up during middle of surgery. Past Psychological History: ADD/ADHD, Anxiety, Bipolar, Depression, Schizophrenia Smoking Status: Current every day smoker, Vaper Past Alcohol Use History: None Reported Past Drug Use History: None Reported - Past Family History Mother Family Medical History: No Reported History General Exam Limitations: no limitations General appearance: alert, in no apparent distress Eye exam: Present: normal appearance, PERRL, EOMI. Absent: scleral icterus, conjunctival injection, periorbital swelling ENT exam: Present: mucous membranes dry Respiratory exam: Present: normal lung sounds bilaterally. Absent: respiratory distress, wheezes, rales, rhonchi, stridor Cardiovascular Exam: Present: regular rate, normal rhythm, normal heart sounds. Absent: systolic murmur, diastolic murmur, rubs, gallop, clicks GI/Abdominal exam: Present: soft, tenderness (diffuse), normal bowel sounds. Absent: distended, guarding, rebound, rigid Extremities exam: Present: normal inspection, full ROM, normal capillary refill. Absent: tenderness, pedal edema, joint swelling, calf tenderness Course Vital Signs 06/01/24 06/01/24 11:51 14:08 Temperature 98.3 F 98.4 F Pulse Rate 90 83 Respiratory 20 18 Rate Blood Pressure 118/72 116/68 O2 Sat by Pulse 94 L 95 Oximetry Medical Decision Making - Medical Decision Making Was pt. sent in by a medical professional or institution (, PA, SYSTEMS ADMINISTRATOR, urgent care, hospital, or fdc...) When possible be specific @ -No Did you speak to anyone other than the patient for history (EMS, parent, family, police, friend...)? What history was obtained from this source @ -No Did you review nursing and triage notes (agree or disagree)? Why? @ -I reviewed and agree with nursing and triage notes Were old charts reviewed (outside hosp., previous admission, EMS record, old EKG, old radiological studies, urgent care reports/EKG's, fdc records)? Report findings @ -No old charts were reviewed Differential Diagnosis (chest pain, altered mental status, abdominal pain women, abdominal pain men, vaginal bleeding, weakness, fever, dyspnea, syncope, headache, dizziness, GI bleed, back pain, seizure, CVA, palpatations, mental health, musculoskeletal)? @ -Differential Abdominal Pain Men: Appendicitis, cholecystitis, diverticulosis, ischemic bowel, pancreatitis, hepatitis, UTI, gastroenteritis, AAA, incarcerated hernia, bowel obstruction, constipation, inflammatory bowel, hepatitis, peptic ulcer disease, splenic i nfarction, perforated viscus, testicular torsion, this is not meant to be an all-inclusive list EKG interpreted by me (3pts min.). @ -None X-rays interpreted by me (1pt min.). @ -None done CT interpreted by me (1pt min.). @ -None done U/S interpreted by me (1pt. min.). @ -None done What testing was considered but not performed or refused? (CT, X-rays, U/S, labs)? Why? @ -None What meds were considered but not given or refused? Why? @ -None Did you discuss the management of the patient with other professionals (professionals i.e. , PA, SYSTEMS ADMINISTRATOR, lab, RT, psych nurse, social media community manager, roll handler, teacher, commissioned defence force officer, case repairer)? Give summary @ -No Was smoking cessation discussed for >3mins.? @ -No Was critical care preformed (if so, how long)? @ -No Were there social determinants of health that impacted care today? How? (Homelessness, low income, unemployed, alcoholism, drug addiction, mcneal sportation, low edu. Level, literacy, decrease access to med. care, alf, rehab)? @ -No Was there de-escalation of care discussed even if they declined (Discuss DNR or withdrawal of care, Hospice)? DNR status @ -No What co-morbidities impacted this encounter? (DM, HTN, Smoking, COPD, CAD, Cancer, CVA, ARF, Chemo, Hep., AIDS, mental health diagnosis, sleep apnea, morbid obesity)? @ -None Was patient admitted / discharged? Hospital course, mention meds given and route, prescriptions, significant lab abnormalities, going to OR and other pertinent info. @ -discharged. 33-year-old male presenting with nausea, vomiting, abdominal pain. Patient noted diffuse abdominal pain on palpation with no signs of rebound tenderness or rigidity. Vitals are stable. Patient will be provided prophylactically with fluids, Reglan, and Benadryl and will undergo laboratory testing. He is in agreement with this plan. Patient's labs remarkable for leukocytosis of 11.5 which is likely reactive secondary to episodes of emesis. On reevaluation, patient states that he is feeling markedly better and has had no episodes of emesis and or nausea after medication administration. Patient is right with outpatient prescription for Reglan instructed to follow-up outpatient primary care provider for further evaluation. Additionally, patient is recommended to follow clear liquid over the next 24 hours and slowly reintroducing foods after such as beans, rice, applesauce, toast. Case discussed with my attending Dr. Kidd Undiagnosed new problem with uncertain prognosis? @ -No Drug Therapy requiring intensive monitoring for toxicity (Heparin, Nitro, Insulin, Cardizem)? @ -No Were any procedures done? @ -No Diagnosis/symptom? @ -acute nausea and vomiting, abdominal pain Acute, or Chronic, or Acute on Chronic? @ -acute Uncomplicated (without systemic symptoms) or Complicated (systemic symptoms)? @ -uncomplicated Side effects of treatment? @ -No Exacerbation, Progression, or Severe Exacerbation? @ -No Poses a threat to life or bodily function? How? (Chest pain, [place], [place], pneumonia, PE, COPD, DKA, ARF, appy, cholecystitis, CVA, Diverticulitis, Homicidal, Suicidal, threat to staff... and all critical care pts) @ -No - Lab Data Result diagrams: 06/01/24 12:30 06/01/24 12:30 Lab Results 06/01/24 06/01/24 06/01/24 Range/Units 12:30 12:30 12:30 WBC 11.5 H (3.8-10.6) k/uL RBC 4.70 (4.30-5.90) m/uL Hgb 14.1 (13.0-17.5) gm/dL Hct 41.3 (39.0-53.0) % MCV 87.9 (80.0-100.0) fL MCH 30.0 (25.0-35.0) pg MCHC 34.1 (31.0-37.0) g/dL RDW 13.3 (11.5-15.5) % Plt Count 283 (150-450) k/uL MPV 8.8 Neutrophils % 75 % Lymphocytes % 14 % Monocytes % 7 % Eosinophils % 2 % Basophils % 0 % Neutrophils # 8.6 H (1.3-7.7) k/uL Lymphocytes # 1.6 (1.0-4.8) k/uL Monocytes # 0.8 (0-1.0) k/uL Eosinophils # 0.2 (0-0.7) k/uL Basophils # 0.0 (0-0.2) k/uL Manual Slide Review Performed RBC Morphology Normal Sodium 139 (137-145) mmol/L Potassium 4.2 (3.5-5.1) mmol/L Chloride 109 H (98-107) mmol/L Carbon Dioxide 21 L (22-30) mmol/L Anion Gap 9 mmol/L BUN 12 (9-20) mg/dL Creatinine 0.91 (0.66-1.25) mg/dL Est GFR (CKD-EPI)AfAm >90 (>60 ml/min/1.73 sqM) Est GFR (CKD-EPI)NonAf >90 (>60 ml/min/1.73 sqM) Glucose 109 H (74-99) mg/dL Plasma Lactic Acid Tim 1.2 (0.7-2.0) mmol/L Calcium 9.7 (8.4-10.2) mg/dL Total Bilirubin 0.7 (0.2-1.3) mg/dL AST 19 (17-59) U/L ALT 17 (4-49) U/L Alkaline Phosphatase 64 (38-126) U/L Total Protein 7.9 (6.3-8.2) g/dL Albumin 4.7 (3.5-5.0) g/dL Amylase 42 (30-110) U/L Lipase 32 (23-300) U/L Influenza Type A (PCR) (Not Detectd) Influenza Type B (PCR) (Not Detectd) RSV (PCR) (Not Detectd) SARS-CoV-2 (PCR) (Not Detectd) 06/01/24 Range/Units 12:30 WBC (3.8-10.6) k/uL RBC (4.30-5.90) m/uL Hgb (13.0-17.5) gm/dL Hct (39.0-53.0) % MCV (80.0-100.0) fL MCH (25.0-35.0) pg MCHC (31.0-37.0) g/dL RDW (11.5-15.5) % Plt Count (150-450) k/uL MPV Neutrophils % % Lymphocytes % % Monocytes % % Eosinophils % % Basophils % % Neutrophils # (1.3-7.7) k/uL Lymphocytes # (1.0-4.8) k/uL Monocytes # (0-1.0) k/uL Eosinophils # (0-0.7) k/uL Basophils # (0-0.2) k/uL Manual Slide Review RBC Morphology Sodium (137-145) mmol/L Potassium (3.5-5.1) mmol/L Chloride (98-107) mmol/L Carbon Dioxide (22-30) mmol/L Anion Gap mmol/L BUN (9-20) mg/dL Creatinine (0.66-1.25) mg/dL Est GFR (CKD-EPI)AfAm (>60 ml/min/1.73 sqM) Est GFR (CKD-EPI)NonAf (>60 ml/min/1.73 sqM) Glucose (74-99) mg/dL Plasma Lactic Acid Tim (0.7-2.0) mmol/L Calcium (8.4-10.2) mg/dL Total Bilirubin (0.2-1.3) mg/dL AST (17-59) U/L ALT (4-49) U/L Alkaline Phosphatase (38-126) U/L Total Protein (6.3-8.2) g/dL Albumin (3.5-5.0) g/dL Amylase (30-110) U/L Lipase (23-300) U/L Influenza Type A (PCR) Not Detected (Not Detectd) Influenza Type B (PCR) Not Detected (Not Detectd) RSV (PCR) Not Detected (Not Detectd) SARS-CoV-2 (PCR) Not Detected (Not Detectd) Disposition Clinical Impression: Nausea and vomiting Disposition: HOME SELF-CARE Condition: Good Instructions (If sedation given, give patient instructions): Acute Nausea and Vomiting (ED) Additional Instructions: Please return to the Emergency Department if symptoms worsen or any other con cerns. Prescriptions: Metoclopramide [Reglan] 10 mg PO TID PRN #15 tab PRN Reason: Nausea Is patient prescribed a controlled substance at d/c from ED?: No Referrals: None,Stated [Primary Care Provider] - 1-2 days Time of Disposition: 13:47
[2024-06-01] MEDS: PANTOPRAZOLE 40 MG/10 ML VIAL IVP STA (12:25)
[2024-06-01] MEDS: METOCLOPRAMIDE 5 MG/ML 2 ML VIAL IVP STA (12:25)
[2024-06-01] MEDS: diphenhydrAMINE 50 MG/ML 1 ML VIAL IVP STA (12:26)
[2024-06-01] MEDS: SODIUM CHLORIDE 0.9% 1,000 ML IV STA (12:26)
[2024-06-01 13:00] LABS: Basophils % (A) 0 %; Eosinophils # (A) 0.2 k/uL (0-0.7); Eosinophils % (A) 2 %; HCT 41.3 % (39.0-53.0); HGB 14.1 gm/dL (13.0-17.5); Lymphocytes # (A) 1.6 k/uL (1.0-4.8); Lymphocytes % (A) 14 %; MCHC 34.1 g/dL (31.0-37.0); MCV 87.9 fL (80.0-100.0); Mean Platelet Volume 8.8; Monocytes # (A) 0.8 k/uL (0-1.0); Monocytes % (A) 7 %; Neutrophils # (A) 8.6 k/uL (1.3-7.7); Neutrophils % (A) 75 %; Platelet Count 283 k/uL (150-450); RDW 13.3 % (11.5-15.5); WBC 11.5 k/uL (3.8-10.6)
[2024-06-01 13:02] LABS: ALT 17 U/L (4-49); AST 19 U/L (17-59); African American GFR (CKD) >90 (>60 ml/min/1.73 sqM); Albumin 4.7 g/dL (3.5-5.0); Alkaline Phosphatase 64 U/L (38-126); Amylase 42 U/L (30-110); Anion Gap 9 mmol/L; Blood Urea Nitrogen 12 mg/dL (9-20); Calcium 9.7 mg/dL (8.4-10.2); Carbon Dioxide 21 mmol/L (22-30); Chloride 109 mmol/L (98-107); Glucose 109 mg/dL (74-99); Lipase 32 U/L (23-300); Non-African American GFR(CKD) >90 (>60 ml/min/1.73 sqM); Potassium 4.2 mmol/L (3.5-5.1); Sodium 139 mmol/L (137-145); Total Bilirubin 0.7 mg/dL (0.2-1.3); Total Protein 7.9 g/dL (6.3-8.2)
[2024-06-01 13:30] LABS: RBC Morphology Normal
[2024-06-01 14:09] VITALS: BP 116/68; PULSE 83; RESP 18; TEMP 98.4
== END 2024-06-01 14:09 | disposition home or self-care (01) ==
LOC: EC 11:42
DX: R11.2 Nausea with vomiting, unspecified (principal); R10.9 Unspecified abdominal pain; F17.290 Nicotine dependence, other tobacco product, uncomplicated; Z88.8 Allergy status to other drugs, medicaments and biological substances; Z88.5 Allergy status to narcotic agent
CPT/HCPCS: 36415; 80053; 82150; 83605; 83690; 85025; 87636; 99284; 96374; 96375 ×2; 96361; J1200; J2765; J2470

== ENCOUNTER 2024-06-15 14:29 | Emergency (ER) | payer OTHER ==
--- NOTE | 2024-06-15 15:07 | ED ---
General Adult HPI <Ross Kidd - Last Filed: 06/15/24 15:04> <ChandraangelaAkbar dinh - Last Filed: 06/15/24 23:29> - General Stated complaint: mental health Time Seen by Provider: 06/15/24 15:04 - History of Present Illness Initial comments: Dictation was produced using [employer] dictation software. please excuse any grammatical, word or spelling errors. Chief Complaint: 33-year-old male presents to the emergency department for for suicidal ideation History of Present Illness: 33-year-old male brought in by law enforcement for suicidal ideation. According to police patient was brought here after patient contacted crisis line stating that he was suicidal. Police brought patient to the ER. Police state that he has been cooperative. Patient states he does not feel suicidal anymore. He is does have history of psychiatric illness. Denies any attempt The ROS documented in this emergency department record has been reviewed and confirmed by me. Those systems with pertinent positive or negative responses have been documented in the HPI. All other systems are other negative and/or noncontributory. (Ross Kidd) - Related Data Previous Rx's Medication Instructions Recorded Amoxic-Pot Clav 875-125Mg 1 tab PO Q12HR 7 Days #14 tab 12/08/23 [Augmentin 875-125] Ibuprofen [Motrin] 600 mg PO Q8HR PRN #30 tab 12/08/23 Hydrocortisone Suppository 25 mg RECTAL BID #25 suppositor 05/07/24 [Anusol-Hc] Metoclopramide [Reglan] 10 mg PO TID PRN #15 tab 06/01/24 Allergies Allergy/AdvReac Type Severity Reaction Status Date / Time acetaminophen Allergy Rash/Hives Verified 06/01/24 11:54 codeine Allergy Rash/Hives Verified 06/01/24 11:54 divalproex sodium Allergy Unknown Verified 06/01/24 11:54 [From Depakote] methylphenidate Allergy Unknown Verified 06/01/24 11:54 [From Daytrana] risperidone [From Risperdal] Allergy Unknown Verified 06/01/24 11:54 trazodone Allergy Unknown Verified 06/01/24 11:54 Review of Systems ROS Other: All systems not noted in ROS Statement are negative. <Ross Kidd - Last Filed: 06/15/24 15:04> ROS Other: All systems not noted in ROS Statement are negative. <Akbar Ritter - Last Filed: 06/15/24 23:29> ROS Statement: Those systems with pertinent positive or pertinent negative responses have been documented in the HPI. Past Medical History Past Medical History: Asthma, Chest Pain / Angina, GERD/Reflux, Hypertension, Skin Disorder, Syncope Additional Past Medical History / Comment(s): Anemia, hx fx rib area, daily diarrhea, IBS, daily vomiting, "I was told liver slowly shutting down", Psoriasis, "borderline diabetic"-watches diet, limps due to bad hip. "Treated for Parasite after last EGD, symptoms only got worse." History of Any Multi-Drug Resistant Organisms: None Reported Past Surgical History: Orthopedic Surgery Additional Past Surgical History / Comment(s): ORIF right wrist/hardware later removed, EGD. Past Anesthesia/Blood Transfusion Reactions: Previous Problems w/ Anesthesia Additional Past Anesthesia/Blood Transfusion Reaction / Comment(s): Woke up during middle of surgery. Past Psychological History: ADD/ADHD, Anxiety, Bipolar, Depression, Schizophrenia Smoking Status: Current every day smoker, Vaper Past Alcohol Use History: None Reported Past Drug Use History: None Reported - Past Family History Mother Family Medical History: No Reported History <Ross Kidd - Last Filed: 06/15/24 15:04> General Exam <Ross Kidd - Last Filed: 06/15/24 15:04> - General Exam Comments Initial Comments: PHYSICAL EXAM: General Impression: Alert and oriented x3, not in acute distress HEENT: Normocephalic atraumatic, extra-ocular movements intact, pupils equal and reactive to light bilaterally, mucous membranes moist. Cardiovascular: Heart regular rate and rhythm Chest: Able to complete full sentences, no retractions, no tachypnea Abdomen: abdomen soft, non-tender, non-distended, no organomegaly Musculoskeletal: Pulses present and equal in all extremities, no peripheral edema Motor: no focal deficits noted Neurological: CN II-XII grossly intact, no focal motor or sensory deficits noted Skin: Intact with no visualized rashes Psych: Normal affect and mood (Ross Kidd) Course Vital Signs 06/15/24 15:03 Temperature 98.3 F Pulse Rate 86 Respiratory 18 Rate Blood Pressure 129/85 O2 Sat by Pulse 97 Oximetry Medical Decision Making <Ross Kidd - Last Filed: 06/15/24 15:04> <Akbar Ritter Richard - Last Filed: 06/15/24 23:29> - Medical Decision Making Was pt. sent in by a medical professional or institution (, PA, BLADDER TIER, urgent care, hospital, or penitentiary...) When possible be specific @ -No Did you speak to anyone other than the patient for history (EMS, parent, family, police, friend...)? What history was obtained from this source @ -No Did you review nursing and triage notes (agree or disagree)? Why? @ -I reviewed and agree with nursing and triage notes Were old charts reviewed (outside hosp., previous admission, EMS record, old EKG, old radiological studies, urgent care reports/EKG's, penitentiary records)? Report findings @ -No old charts were reviewed Differential Diagnosis (chest pain, altered mental status, abdominal pain women, abdominal pain men, vaginal bleeding, musculoskeletal, weakness, fever, dyspnea, syncope, headache, dizziness, GI bleed, back pain, seizure, CVA, palpatations, mental health)? @ -Differential Mental Health: Depression, anxiety, bipolar, psychosis, schizophrenia, borderline personality, situational depression, adjustment disorder, behavioral disorder, brain tumor, malingering, substance abuse, encephalopathy, medication reaction, dementia, hypothyroidism, degenerative neurologic disorder, lupus.... This is not meant to be all-inclusive list EKG interpreted by me (3pts min.). @ -None done X-rays interpreted by me (1pt min.). @ -None done CT interpreted by me (1pt min.). @ -None done U/S interpreted by me (1pt. min.). @ -None done What testing was considered but not performed or refused? (CT, X-rays, U/S, labs)? Why? @ -None What meds were considered but not given or refused? Why? @ -None Was smoking cessation discussed for >3mins.? @ -No Were there social determinants of health that impacted care today? How? (Homelessness, low income, unemployed, alcoholism, drug addiction, transportation, low edu. Level, literacy, decrease access to med. care, residential, rehab)? @ -No Was there de-escalation of care discussed even if they declined (Discuss DNR or withdrawal of care, Hospice)? DNR status @ -No What co-morbidities impacted this encounter? (DM, HTN, Smoking, COPD, CAD, Cancer, CVA, ARF, Chemo, Hep., AIDS, mental health diagnosis, sleep apnea, morbid obesity)? @ -None Was patient admitted / discharged? Hospital course, mention meds given and route, prescriptions, significant lab abnormalities, going to OR and other pertinent info. @ -33-year-old male presents to the emergency department brought in by law enforcement for suicidal ideation. Patient is petitioned by peace officers. Vital signs. Patient physical examination is benign. Medically cleared for EPS evaluation Did you discuss the management of the patient with other professionals (professionals i.e. , PA, BLADDER TIER, lab, RT, psych nurse, social worker assistant, software sales consultant, teacher, assurance officer, casework manager)? Give summary @ -No Was critical care preformed (if so, how long)? @ -No Undiagnosed new problem with uncertain prognosis? @ -No Drug Therapy requiring intensive monitoring for toxicity (Heparin, Nitro, Insulin, Cardizem)? @ -No Were any procedures done? @ -No Diagnosis/symptom? Acute, or Chronic, or Acute on Chronic? Uncomplicated (without systemic symptoms) or Complicated (systemic symptoms)? @ -Suicidal ideation Side effects of treatment? @ -No Exacerbation, Progression, or Severe Exacerbation? @ -No Poses a threat to life or bodily function? How? (Chest pain, [place], [place], pneumonia, PE, COPD, DKA, ARF, appy, cholecystitis, CVA, Diverticulitis, Homicidal, Suicidal, threat to staff... and all critical care pts) @ -yes (Ross Kidd) Patient was medically cleared by the previous physician and evaluated by EPS and felt to be safe for discharge. He has signed a safety plan. (Akbar Ritter) Disposition <Ross Kidd - Last Filed: 06/15/24 15:04> Is patient prescribed a controlled substance at d/c from ED?: No Time of Disposition: 23:29 <Akbar Ritter - Last Filed: 06/15/24 23:29> Clinical Impression: Depression Disposition: HOME SELF-CARE Condition: Fair Instructions (If sedation given, give patient instructions): Depression (ED) Referrals: None,Stated [Primary Care Provider] - 1-2 days
[2024-06-15 15:08] VITALS: RESP 18; TEMP 98.3
[2024-06-15] MEDS: NICOTINE 21MG/24HR PATCH TRANSDERM STA (22:52)
[2024-06-15 23:40] VITALS: BP 123/80; PULSE 90
== END 2024-06-15 23:58 | disposition home or self-care (01) ==
LOC: EC 14:29
DX: F32.A Depression, unspecified (principal); R45.851 Suicidal ideations; F17.290 Nicotine dependence, other tobacco product, uncomplicated; Z88.8 Allergy status to other drugs, medicaments and biological substances; Z88.5 Allergy status to narcotic agent
CPT/HCPCS: 82075; 99285; S4990